=== PATIENT | female | born 1945 | race Caucasian/White ===

== ENCOUNTER 2016-08-07 19:57 | Emergency (ER) | payer MEDICARE ==
[2016-08-07] MEDS ORDERED: Ketorolac 30 MG/ML SDV IM ONE (20:36)
--- NOTE | 2016-08-07 20:39 | EDM.PDOC ---
ED HPI GI/ABDOMINAL - General Chief Complaint: Abdominal Pain Stated Complaint: LOWER ABD PAIN Time Seen by Provider: 08/07/16 20:25 Source: Reports: Patient, Old records History Limitations: Reports: No limitations - History of Present Illness INITIAL COMMENTS - FREE TEXT/NARRATIVE: 70 yo female presents with progressive LLQ abdominal pain since this morning. No nausea or fever. Eating did not change her pain. Took acetaminophen with some relief. Has a pHx of a complete hysterectomy and cholecystectomy. Had colonoscopy that per patient revealed polyps, but no diverticuli. Had 2 BM's today. Symptom Onset Date: 08/07/16 Timing/Duration: Reports: Hour(s):, Getting worse Location: LLQ Quality: Reports: ache Severity: moderate Improves with: Reports: other (partial relief with acetaminophen) Context: Reports: other (unknown) Associated Symptoms (-Female): Reports: loss of appetite. 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 Denies: Aspirin, NSAIDS - Related Data Allergies/ADRs: Allergies Allergy/AdvReac Type Severity Reaction Status Date / Time Fish Containing Products Allergy Severe Difficulty Verified 08/07/16 20:11 Swallowing iodine Allergy Severe Rash Verified 08/07/16 20:11 Penicillins Allergy Severe Rash Verified 08/07/16 20:11 Home Meds: Home Meds Ascorbate Calcium [Vitamin C] 500 mg PO DAILY 12/07/13 [History] Aspirin [Low Dose Aspirin EC] 81 mg PO DAILY 12/07/13 [History] Calcium Carbonate [Calcium] 500 mg PO DAILY 12/07/13 [History] Cholecalciferol (Vitamin D3) [Vitamin D] 2,000 unit PO DAILY 12/07/13 [History] Cyanocobalamin (Vitamin B-12) [Vitamin B-12] 1,000 mcg PO DAILY 12/07/13 [ History] Hydrochlorothiazide 25 mg PO DAILY 12/07/13 [History] Multivitamin [Multivitamins] 1 each PO DAILY 12/07/13 [History] Potassium 99 mg PO DAILY 12/07/13 [History] Ranitidine HCl [Ranitidine] 150 mg PO BID 12/07/13 [History] Triamcinolone Acetonide [Triamcinolone Acetonide 0.1% Crm] 15 gm TOP TID PRN [History] amLODIPine Besylate/Benazepril [Amlodipine-Benazepril 10-20 MG] 10 - 20 mg PO DAILY 12/07/13 [History] Ciprofloxacin HCl [Cipro] 500 mg PO BID #19 tablet 08/07/16 [Rx] Metronidazole [IJD: metroNIDAZOLE] 500 mg PO .EVERY 8 HOURS #30 tab 08/07/16 [Rx ] Hydrocodone/Acetaminophen [[place] 5-325] 1 tab PO Q4H PRN #14 tablet 08/08/16 [Rx ] Past Medical History Cardiovascular History: Reports: Hypertension, Other (see below) Other Cardiovascular History: Angiogram Gastrointestinal History: Reports: GERD 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: Musculoskeletal History: Reports: Arthritis, Back pain, chronic Endocrine/Metabolic History: Reports: Obesity/BMI 30+, Vitamin D deficiency Oncologic (Cancer) History: Reports: Uterine - Infectious Disease History Infectious Disease History: Reports: Chicken pox, Measles, Pertussis (whooping cough) - Past Surgical History GI Surgical History: Reports: Cholecystectomy Female Surgical History: Reports: section, Hysterectomy Neurological Surgical History: Reports: Lumbar spine, Spinal fusion Musculoskeletal Surgical History: Reports: Knee replacement Dermatological Surgical History: Reports: Skin biopsy Social & Family History - Tobacco Use Smoking Status *Q: Never Smoker Second Hand Smoke Exposure: No - Caffeine Use Caffeine Use: Reports: Coffee - Alcohol Use Days Per Week of Alcohol Use: 0 - Recreational Drug Use Recreational Drug Use: No ED ROS GENERAL - Review of Systems Review Of Systems: See Below Constitutional: Reports: no symptoms HEENT: Reports: No symptoms Respiratory: Reports: No Symptoms Cardiovascular: Reports: No symptoms Endocrine: Reports: no symptoms GI/Abdominal: Reports: Abdominal pain (LLQ and suprapubic) : Reports: no symptoms Musculoskeletal: Reports: no symptoms Skin: Reports: no symptoms Neurological: Reports: No Symptoms Psychiatric: Reports: No symptoms ED EXAM, GI/ABD - Physical Exam Exam: See Below Exam Limited By: No limitations General Appearance: alert, WD/WN, no apparent distress, obese Eyes: bilateral: normal appearance, EOMI Ears: normal external exam, normal canal, hearing grossly normal Nose: normal inspection, normal mucosa, no blood Throat/Mouth: Normal inspection, Normal lips, Normal teeth, Normal gums, Normal oropharynx, Normal voice, No airway compromise Head: atraumatic, normocephalic Neck: normal inspection, supple Respiratory/Chest: no respiratory distress, lungs clear, normal breath sounds, no accessory muscle use Cardiovascular: regular rate, rhythm, no edema GI/Abdominal: normal bowel sounds, soft, no distention, tenderness (mild LLQ tenderness.). No: distention, guarding, rebound, rigidity, hernia, McBurney's sign, Mansfield's sign Back Exam: normal inspection Extremities: normal inspection, normal range of motion, non-tender, no pedal edema Neurological: alert, oriented, CN II-XII intact, normal cognition, no motor/ sensory deficits Psychiatric: normal affect, normal mood Skin Exam: Warm, Dry, Intact, Normal color, No rash Lymphatic: no adenopathy Course - Vital Signs Text/Narrative:: Toradol 30 mg IM, LR 1000 ml IV Abd/pelvis CT scan- Last Recorded V/S: Last Vital Signs Temp 36.3 C 08/07/16 20:05 Pulse 71 08/07/16 21:34 Resp 18 08/07/16 20:28 BP 145/88 H 08/07/16 21:34 Pulse Ox 100 08/07/16 21:34 - Orders/Labs/Meds Orders: Active Orders 24 hr Category Date Time Status Abdomen Pelvis w Cont [CT] Stat Exams 08/07/16 21:12 Taken Iopamidol [Isovue-300 (61%)] Med 08/07/16 21:30 Active 150 ml IV . DIRECTED Sodium Chloride 0.9% [Saline Flush] Med 08/07/16 21:12 Active 10 ml FLUSH ASDIRECTED PRN Sodium Chloride 0.9% [Saline Flush] Med 08/07/16 21:30 Active 10 ml FLUSH ONETIME PRN Saline Lock Insert [OM.PC] Routine Oth 08/07/16 21:12 Ordered Medication Orders Iopamidol (Isovue-300 (61%)) 150 ml IV . DIRECTED AUBREY Last Admin: 08/07/16 22:51 Dose: 150 ml Sodium Chloride (Saline Flush) 10 ml FLUSH ASDIRECTED PRN PRN Reason: Keep Vein Open Last Admin: 08/07/16 21:52 Dose: 10 ml Sodium Chloride (Saline Flush) 10 ml FLUSH ONETIME PRN PRN Reason: PER RADIOLOGY PROTOCOL Last Admin: 08/07/16 22:50 Dose: 10 ml Labs: Laboratory Tests 08/07/16 08/07/16 08/07/16 Range/Units 20:39 20:47 20:47 WBC 7.7 (4.5-11.0) K/uL RBC 4.52 (3.30-5.50) M/uL Hgb 12.1 (12.0-15.0) g/dL Hct 37.6 (36.0-48.0) % MCV 83 (80-98) fL MCH 27 (27-31) pg MCHC 32 (32-36) % Plt Count 340 (150-400) K/uL Sodium 142 (140-148) mmol/L Potassium 3.9 (3.6-5.2) mmol/L Chloride 105 (100-108) mmol/L Carbon Dioxide 27 (21-32) mmol/L Anion Gap 10.4 (5.0-14.0) mmol/L BUN 19 H (7-18) mg/dL Creatinine 1.2 H (0.6-1.0) mg/dL Est Cr Clr Drug Dosing 32.92 mL/min Estimated GFR (MDRD) 44 L (>60) Glucose 96 (74-106) mg/dL Calcium 8.9 (8.5-10.1) mg/dL C-Reactive Protein (0.0-0.3) mg/dL Urine Color Yellow Urine Appearance Clear Urine pH 5.0 (4.5-8.0) Ur Specific [place] 1.010 (1.008-1.030) Urine Protein Negative (NEGATIVE) mg/dL Urine Glucose (UA) Normal (NEGATIVE) mg/dL Urine Ketones Negative (NEGATIVE) mg/dL Urine Occult Blood Negative (NEGATIVE) Urine Nitrite Negative (NEGATIVE) Urine Bilirubin Negative (NEGATIVE) Urine Urobilinogen Normal (NORMAL) mg/dL Ur Leukocyte Esterase Negative (NEGATIVE) Urine RBC 0-5 (0-5) Urine WBC 0-5 (0-5) Ur Epithelial Cells Rare Amorphous Sediment Few Urine Bacteria Rare Urine Mucus Few 08/07/16 Range/Units 20:47 WBC (4.5-11.0) K/uL RBC (3.30-5.50) M/uL Hgb (12.0-15.0) g/dL Hct (36.0-48.0) % MCV (80-98) fL MCH (27-31) pg MCHC (32-36) % Plt Count (150-400) K/uL Sodium (140-148) mmol/L Potassium (3.6-5.2) mmol/L Chloride (100-108) mmol/L Carbon Dioxide (21-32) mmol/L Anion Gap (5.0-14.0) mmol/L BUN (7-18) mg/dL Creatinine (0.6-1.0) mg/dL Est Cr Clr Drug Dosing mL/min Estimated GFR (MDRD) (>60) Glucose (74-106) mg/dL Calcium (8.5-10.1) mg/dL C-Reactive Protein 0.79 H (0.0-0.3) mg/dL Urine Color Urine Appearance Urine pH (4.5-8.0) Ur Specific [place] (1.008-1.030) Urine Protein (NEGATIVE) mg/dL Urine Glucose (UA) (NEGATIVE) mg/dL Urine Ketones (NEGATIVE) mg/dL Urine Occult Blood (NEGATIVE) Urine Nitrite (NEGATIVE) Urine Bilirubin (NEGATIVE) Urine Urobilinogen (NORMAL) mg/dL Ur Leukocyte Esterase (NEGATIVE) Urine RBC (0-5) Urine WBC (0-5) Ur Epithelial Cells Amorphous Sediment Urine Bacteria Urine Mucus Meds: Medications Generic Name Dose Route Start Last Admin Trade Name Freq PRN Reason Stop Dose Admin Iopamidol 150 ml 08/07/16 21:30 08/07/16 22:51 Isovue-300 (61%) IV 150 ml . DIRECTED AUBREY Administration Sodium Chloride 10 ml 08/07/16 21:12 08/07/16 21:52 Saline Flush FLUSH 10 ml ASDIRECTED PRN Administration Keep Vein Open Sodium Chloride 10 ml 08/07/16 21:30 08/07/16 22:50 Saline Flush FLUSH 10 ml ONETIME PRN Administration PER RADIOLOGY PROTOCOL Discontinued Medications Generic Name Dose Route Start Last Admin Trade Name Freq PRN Reason Stop Dose Admin Ciprofloxacin 500 mg 08/07/16 23:25 08/07/16 23:33 Ciprofloxacin Hcl PO 08/07/16 23:26 500 mg ONETIME ONE Administration Lactated Ringer's 1,000 mls @ 1,000 mls/hr 08/07/16 21:30 08/07/16 21:41 Ringers, Lactated IV 08/07/16 22:29 1,000 mls/hr BOLUS ONE Administration Sodium Chloride 85 mls @ 3 mls/sec 08/07/16 21:30 08/07/16 22:50 Normal Saline IV 08/07/16 21:31 3 mls/sec ONETIME ONE Administration Ketorolac Tromethamine 30 mg 08/07/16 20:36 08/07/16 20:45 Toradol IM 08/07/16 20:37 30 mg ONETIME ONE Administration Metronidazole 500 mg 08/07/16 23:26 08/07/16 23:33 Metronidazole PO 08/07/16 23:27 500 mg ONETIME ONE Administration Departure - Departure Time of Disposition: 00:05 Disposition: Home, Self-Care 01 Condition: fair Clinical Impression: Diverticulitis Qualifiers: Diverticulitis site: large intestine Diverticulitis bleeding: without bleeding Diverticulitis complication: without perforation or abscess Qualified Code(s): K57.32 - Diverticulitis of large intestine without perforation or abscess without bleeding Prescriptions: Ciprofloxacin HCl [Cipro] 500 mg PO BID #19 tablet Hydrocodone/Acetaminophen [[place] 5-325] 1 tab PO Q4H PRN #14 tablet PRN Reason: Pain Metronidazole [IJD: metroNIDAZOLE] 500 mg PO .EVERY 8 HOURS #30 tab Referrals: PCP,None [Primary Care Provider] - Forms: ED Department Discharge Additional Instructions: Eat a light diet. Take metronidazole and ciprofloxacin as directed. Use either acetaminophen or [place] for pain relief. See your doctor early this next week for recheck. Return if worse. - My Orders Last 24 Hours: My Active Orders 08/07/16 21:12 Abdomen Pelvis w Cont [CT] Stat Sodium Chloride 0.9% [Saline Flush] 10 ml FLUSH ASDIRECTED PRN Saline Lock Insert [OM.PC] Routine 08/07/16 21:30 Iopamidol [Isovue-300 (61%)] 150 ml IV . DIRECTED Sodium Chloride 0.9% [Saline Flush] 10 ml FLUSH ONETIME PRN - Assessment/Plan Last 24 Hours: My Active Orders 08/07/16 21:12 Abdomen Pelvis w Cont [CT] Stat Sodium Chloride 0.9% [Saline Flush] 10 ml FLUSH ASDIRECTED PRN Saline Lock Insert [OM.PC] Routine 08/07/16 21:30 Iopamidol [Isovue-300 (61%)] 150 ml IV . DIRECTED Sodium Chloride 0.9% [Saline Flush] 10 ml FLUSH ONETIME PRN
[2016-08-07] MEDS ORDERED: Sodium Chloride 0.9% 10 ML Syringe FLUSH PRN ×2 (21:12→21:30)
[2016-08-07] MEDS ORDERED: Iopamidol 612 MG/ML 150 ML Bottle IV SCH (21:30)
[2016-08-07] MEDS ORDERED: Lactated Ringers 1,000 ML IV ONE (21:30)
[2016-08-07 21:48] VITALS: BP 145/88
[2016-08-07] MEDS ORDERED: Ciprofloxacin 500 MG Tab PO ONE (23:25)
[2016-08-07] MEDS ORDERED: metroNIDAZOLE 250 MG Tab PO ONE (23:26)
== END 2016-08-08 00:11 | disposition home or self-care (01) ==
LOC: JP.ED 19:57
DX: K57.32 Diverticulitis of large intestine without perforation or abscess without bleeding (principal); I10 Essential (primary) hypertension; K21.9 Gastro-esophageal reflux disease without esophagitis; E66.9 Obesity, unspecified; Z68.43 Body mass index [BMI] 50.0-59.9, adult; Z90.49 Acquired absence of other specified parts of digestive tract; Z90.710 Acquired absence of both cervix and uterus; Z98.1 Arthrodesis status; Z96.659 Presence of unspecified artificial knee joint; Z98.890 Other specified postprocedural states; Z85.42 Personal history of malignant neoplasm of other parts of uterus; Z79.82 Long term (current) use of aspirin; Z79.899 Other long term (current) drug therapy; Z88.0 Allergy status to penicillin; Z91.013 Allergy to seafood; Z88.8 Allergy status to other drugs, medicaments and biological substances
CPT/HCPCS: 36415; 74177; 80048; 81001; 85027; 86140; 96360; 96372; 99283; 99284; A9270; J1885; J7030; J7050; J7120

== ENCOUNTER 2016-08-30 18:48 | Emergency (ER) | payer MEDICARE ==
[2016-08-30 18:54] VITALS: BP 146/78
--- NOTE | 2016-08-30 19:42 | EDM.PDOC ---
[id number]: ILLNESS Time Seen by Provider: 08/30/16 19:00 Source of Information: Reports: Patient, EMS, Family History Limitations: Reports: No limitations - History of Present Illness INITIAL COMMENTS - FREE TEXT/NARRATIVE: 70-year-old female brought in by ambulance after having what appears to be a very intense syncopal episode at home. She was active in the house picking up papers off the floor, and sat down in a chair and felt fine for approximately 15 minutes. She then developed some lightheadedness and after leaning forward apparently fainted in the next and she remembers is her talking to her. She then felt she was doing better but walked into the kitchen and felt her legs were rubbery, she was lightheaded and was diaphoretic so she called her daughter and her daughter told her to come in. EMS arrived, found her to be stable with frequent PVCs but no other abnormalities. On arrival to the emergency room she was asymptomatic. She had an angiogram 2 years ago which was normal, a complete physical 3 weeks ago with labs which was reassuring and normal, but has been taking antibiotics for recent diverticulitis. She did not take her regular medications today. She did have an alcoholic beverage this afternoon which is very unusual for her. Onset: sudden Location: Reports: generalized Severity: moderate Associated Symptoms: Reports: other (Brief period of lightheaded sensation prior to fainting, she was incontinent during the episode) Abdominal Pain Score (Numeric/FACES): 1 - Related Data Allergies Allergy/AdvReac Type Severity Reaction Status Date / Time Fish Containing Products Allergy Severe Difficulty Verified 08/30/16 18:57 Swallowing iodine Allergy Severe Rash Verified 08/30/16 18:57 Penicillins Allergy Severe Rash Verified 08/30/16 18:57 Home Meds: Home Meds Ascorbate Calcium [Vitamin C] 500 mg PO DAILY 12/07/13 [History] Aspirin [Low Dose Aspirin EC] 81 mg PO DAILY 12/07/13 [History] Calcium Carbonate [Calcium] 500 mg PO DAILY 12/07/13 [History] Cholecalciferol (Vitamin D3) [Vitamin D] 2,000 unit PO DAILY 12/07/13 [History] Cyanocobalamin (Vitamin B-12) [Vitamin B-12] 1,000 mcg PO DAILY 12/07/13 [ History] Hydrochlorothiazide 25 mg PO DAILY 12/07/13 [History] Multivitamin [Multivitamins] 1 each PO DAILY 12/07/13 [History] Potassium 99 mg PO DAILY 12/07/13 [History] Ranitidine HCl [Ranitidine] 150 mg PO BID 12/07/13 [History] Triamcinolone Acetonide [Triamcinolone Acetonide 0.1% Crm] 15 gm TOP TID PRN [History] amLODIPine Besylate/Benazepril [Amlodipine-Benazepril 10-20 MG] 10 - 20 mg PO DAILY 12/07/13 [History] Ciprofloxacin HCl [Cipro] 500 mg PO BID #19 tablet 08/07/16 [Rx] Metronidazole [IJD: metroNIDAZOLE] 500 mg PO .EVERY 8 HOURS #30 tab 08/07/16 [Rx ] Hydrocodone/Acetaminophen [[place] 5-325] 1 tab PO Q4H PRN #14 tablet 08/08/16 [Rx ] Past Medical History Cardiovascular History: Reports: Hypertension, Other (see below) Other Cardiovascular History: Angiogram Gastrointestinal History: Reports: GERD, Other (see below) Other Gastrointestinal History: diverticulitis 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: , 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 (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) Other OB/BYN History: uterine cancer Musculoskeletal History: Reports: Arthritis, Back pain, chronic Endocrine/Metabolic History: Reports: Obesity/BMI 30+, Vitamin D deficiency Oncologic (Cancer) History: Reports: Uterine, Other (see below) Other Oncologic History: skin cancer Dermatologic History: Reports: Other (see below) Other Dermatologic History: skin cancer - Infectious Disease History Infectious Disease History: Reports: Chicken pox, Measles, Mumps - Past Surgical History GI Surgical History: Reports: Cholecystectomy, Colonoscopy, Polypectomy Female Surgical History: Reports: section, Hysterectomy, Salpingo- oophorectomy Neurological Surgical History: Reports: Lumbar spine, Spinal fusion Musculoskeletal Surgical History: Reports: Knee replacement Dermatological Surgical History: Reports: Skin biopsy Social & Family History - Tobacco Use Smoking Status *Q: Never Smoker Second Hand Smoke Exposure: No - Caffeine Use Caffeine Use: Reports: Coffee - Alcohol Use Days Per Week of Alcohol Use: 0 - Recreational Drug Use Recreational Drug Use: No ED ROS GENERAL - Review of Systems Review Of Systems: See Below Constitutional: Denies: fever, chills Respiratory: Denies: Shortness of Breath Cardiovascular: Denies: Chest pain Endocrine: Denies: fatigue GI/Abdominal: Denies: Abdominal pain, Nausea, Vomiting : Reports: incontinence Skin: Reports: pallor, diaphoresis Neurological: Reports: Syncope Psychiatric: Reports: No symptoms ED EXAM, GENERAL - Physical Exam Exam: See Below Exam Limited By: No limitations General Appearance: alert, no apparent distress Eye Exam: bilateral eye: EOMI, normal inspection Respiratory/Chest: no respiratory distress, lungs clear Cardiovascular: regular rate, rhythm, extra beats (Frequent PVCs) GI/Abdominal: soft, non tender Extremities: pedal edema (1+ symmetric lower extremity edema) Neurological: alert, oriented, no motor/sensory deficits Psychiatric: normal affect, normal mood Skin Exam: Warm, Dry Course - Vital Signs Last Recorded V/S: Last Vital Signs Temp 97.3 F 08/30/16 19:03 Pulse 94 08/30/16 19:03 Resp 16 08/30/16 19:03 BP 146/78 H 08/30/16 19:03 Pulse Ox 99 08/30/16 19:03 - Orders/Labs/Meds Labs: Laboratory Tests 08/30/16 08/30/16 Range/Units 19:57 19:57 WBC 6.6 (4.5-11.0) K/uL RBC 4.48 (3.30-5.50) M/uL Hgb 11.9 L (12.0-15.0) g/dL Hct 37.6 (36.0-48.0) % MCV 84 (80-98) fL MCH 27 (27-31) pg MCHC 32 (32-36) % Plt Count 319 (150-400) K/uL Neut % (Auto) 68 H (36-66) % Lymph % (Auto) 20 L (24-44) % [place] % (Auto) 9 H (2-6) % Eos % (Auto) 3 (2-4) % Baso % (Auto) 0 (0-1) % Sodium 142 (140-148) mmol/L Potassium 4.0 (3.6-5.2) mmol/L Chloride 106 (100-108) mmol/L Carbon Dioxide 27 (21-32) mmol/L Anion Gap 9.2 (5.0-14.0) mmol/L BUN 22 H (7-18) mg/dL Creatinine 1.1 H (0.6-1.0) mg/dL Est Cr Clr Drug Dosing 37.64 mL/min Estimated GFR (MDRD) 49 L (>60) Glucose 120 H (74-106) mg/dL Calcium 8.3 L (8.5-10.1) mg/dL Total Bilirubin 0.3 D (0.2-1.0) mg/dL AST 21 (15-37) U/L ALT 22 (12-78) U/L Alkaline Phosphatase 63 (46-116) U/L Troponin I 0.027 (0.000-0.056) ng/mL Total Protein 7.1 (6.4-8.2) g/dL Albumin 3.3 L (3.4-5.0) g/dL Globulin 3.8 H (2.3-3.5) g/dL Albumin/Globulin Ratio 0.9 L (1.2-2.2) - Re-Assessments/Exams Free Text/Narrative Re-Assessment/Exam: 08/30/16 20:18 Patient was kept on cardiac monitoring for 2 hours, displayed frequent PACs and PVCs but no runs of ominous arrhythmia. She had no recurrence of symptoms. A CBC CMP and troponin were obtained. 08/30/16 20:33 Labs were reassuring. The patient in observation in the hospital overnight on telemetry which she wanted to go home. I think she'll do well as this was likely vasovagal. Departure - Departure Time of Disposition: 20:50 Disposition: Home, Self-Care 01 Condition: good Clinical Impression: Syncope, vasovagal Instructions: Syncope, [id number] Referrals: Mane Cohen MD [Primary Care Provider] - Forms: ED Department Discharge Care Plan Goals: Continue your regular medications, increase activity as tolerated and return anytime if worsening or concerns.
== END 2016-08-30 20:50 | disposition home or self-care (01) ==
LOC: JP.ED 18:48
DX: R55 Syncope and collapse (principal); I10 Essential (primary) hypertension; K21.9 Gastro-esophageal reflux disease without esophagitis; E66.9 Obesity, unspecified; Z68.42 Body mass index [BMI] 45.0-49.9, adult; Z85.42 Personal history of malignant neoplasm of other parts of uterus; Z90.49 Acquired absence of other specified parts of digestive tract; Z90.710 Acquired absence of both cervix and uterus; Z90.721 Acquired absence of ovaries, unilateral; Z98.1 Arthrodesis status; Z98.890 Other specified postprocedural states; Z96.659 Presence of unspecified artificial knee joint; Z79.82 Long term (current) use of aspirin; Z79.899 Other long term (current) drug therapy; Z88.0 Allergy status to penicillin; Z88.8 Allergy status to other drugs, medicaments and biological substances; Z91.018 Allergy to other foods
CPT/HCPCS: 36415; 80053; 84484; 85025; 99284

== ENCOUNTER 2017-07-25 06:36 | Emergency (ER) | payer MEDICARE ==
[2017-07-25 07:19] VITALS: BP 115/59
--- NOTE | 2017-07-25 08:16 | EDM.PDOC ---
ED HPI GENERAL MEDICAL PROBLEM - General Chief Complaint: Syncope Stated Complaint: DIZZY Time Seen by Provider: 07/25/17 08:00 Source of Information: Reports: Patient, Family, Old Records, RN History Limitations: Reports: No Limitations - History of Present Illness INITIAL COMMENTS - FREE TEXT/NARRATIVE: 71 yo female presents from her home after a syncopal spell that lasted a couple minutes. She was in bed and recalls changing her position in bed and then doesn' t remember anything until she came to. She was seen here several mos ago for a very similar episode. Her extensive work up at that time was negative and included blood work, a heart monitor for a month, ECHO, a stress test, and a head CT. Both syncopal spells included incontinence of urine, diaphoresis, & no tongue biting or tremors. Both were associated with some weakness afterwards. She lives with her who described to EMS what he noted. EMS noted all normal vitals and BS upon their assessment. On presentation to the ER Mary Kay is feeling fully back to her normal. Didn't sleep well last night, but this is not unusual. Has no hx of seizures. Reports eating cake and ice cream before bed, and had another piece of cake in the night when she couldn't sleep. Onset: Today Onset Date: 07/25/17 Onset Time: 06:15 Duration: Minutes: (2-4), Improving (now normal) Location: Reports: Generalized Quality: Reports: Other (no pain) Severity: Moderate Improves with: Reports: Other (? time) Worsens with: Reports: Other (unknown precipitating events.) Context: Reports: Other (Hx of one prior episode of syncope, ) Associated Symptoms: Reports: Diaphoresis, Syncope, Weakness. 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 (see below) (none) - Related Data Allergies Allergy/AdvReac Type Severity Reaction Status Date / Time Fish Containing Products Allergy Severe Difficulty Verified 07/25/17 07:22 Swallowing iodine Allergy Severe Rash Verified 07/25/17 07:22 Penicillins Allergy Severe Rash Verified 07/25/17 07:22 Home Meds: Home Meds Ascorbate Calcium [Vitamin C] 500 mg PO DAILY 12/07/13 [History] Aspirin [Low Dose Aspirin EC] 81 mg PO DAILY 12/07/13 [History] Calcium Carbonate [Calcium] 500 mg PO DAILY 12/07/13 [History] Cholecalciferol (Vitamin D3) [Vitamin D] 2,000 unit PO DAILY 12/07/13 [History] Cyanocobalamin (Vitamin B-12) [Vitamin B-12] 1,000 mcg PO DAILY 12/07/13 [ History] Hydrochlorothiazide 25 mg PO DAILY 12/07/13 [History] Multivitamin [Multivitamins] 1 each PO DAILY 12/07/13 [History] Potassium 99 mg PO DAILY 12/07/13 [History] Ranitidine HCl [Ranitidine] 150 mg PO BID 12/07/13 [History] Triamcinolone Acetonide [Triamcinolone Acetonide 0.1% Crm] 1 appful TOP TID PRN 12/07/13 [History] amLODIPine Besylate/Benazepril [Amlodipine-Benazepril 10-20 MG] 1 cap PO DAILY 12/07/13 [History] atorvaSTATin [Lipitor] 1 tab PO BEDTIME 09/11/16 [History] Past Medical History - Past Health History Medical/Surgical History: Denies Medical/Surgical History Cardiovascular History: Reports: Hypertension, Other (See Below) Other Cardiovascular History: Angiogram Gastrointestinal History: Reports: GERD, Other (See Below) Other Gastrointestinal History: diverticulitis 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: , Other (See Below) Other OB/BYN History: uterine cancer Musculoskeletal History: Reports: Arthritis, Back Pain, Chronic Endocrine/Metabolic History: Reports: Obesity/BMI 30+, Vitamin D Deficiency Oncologic (Cancer) History: Reports: Uterine, Other (See Below) Other Oncologic History: skin cancer Dermatologic History: Reports: Other (See Below) Other Dermatologic History: skin cancer - Infectious Disease History Infectious Disease History: Reports: Chicken Pox, Measles, Mumps - Past Surgical History Female Surgical History: Reports: Section, Hysterectomy, Salpingo- Oophorectomy Neurological Surgical History: Reports: Lumbar Spine, Spinal Fusion Musculoskeletal Surgical History: Reports: Knee Replacement Dermatological Surgical History: Reports: Skin Biopsy Social & Family History - Tobacco Use Smoking Status *Q: Never Smoker Second Hand Smoke Exposure: No - Caffeine Use Caffeine Use: Reports: Coffee - Alcohol Use Days Per Week of Alcohol Use: 0 - Recreational Drug Use Recreational Drug Use: No ED ROS GENERAL - Review of Systems Review Of Systems: See Below Constitutional: Reports: Diaphoresis (transiently associated with her syncopal spell.) HEENT: Reports: No Symptoms Respiratory: Reports: No Symptoms Cardiovascular: Reports: No Symptoms Endocrine: Reports: No Symptoms GI/Abdominal: Reports: No Symptoms : Reports: Incontinence (only in association with her synopal spells.) Musculoskeletal: Reports: No Symptoms Skin: Reports: No Symptoms Neurological: Reports: No Symptoms Psychiatric: Reports: No Symptoms - Physical Exam Exam: See Below Exam Limited By: No Limitations General Appearance: Alert, WD/WN, No Apparent Distress, Obese Eye Exam: Bilateral Eye: EOMI, Normal Inspection, PERRL Ears: Normal External Exam, Normal Canal, Hearing Grossly Normal Nose: Normal Inspection, Normal Mucosa, No Blood Throat/Mouth: Normal Inspection, Normal Lips, Normal Oropharynx, Normal Voice, No Airway Compromise. No: Evidence of Tongue Biting Head Exam: Atraumatic, Normocephalic Neck: Normal Inspection, Supple Respiratory/Chest: No Respiratory Distress, Lungs Clear, Normal Breath Sounds, No Accessory Muscle Use Cardiovascular: Regular Rate, Rhythm, No Edema GI/Abdominal: Normal Bowel Sounds, Soft, Non-Tender, No Distention Rectal (Female) Exam: Normal Exam Neuro Exam (Abbreviated): Alert, Oriented, CN II-XII Intact, Normal Cognition, No Motor/Sensory Deficits Back Exam: Normal Inspection. No: CVA Tenderness (R), CVA Tenderness (L) Extremities: Normal Inspection, Normal Range of Motion, Non-Tender, No Pedal Edema Psychiatric: Normal Affect, Normal Mood Skin Exam: Warm, Dry, Intact, Normal Color, No Rash EKG INTERPRETATION EKG Date: 07/25/17 Time: 08:40 Rhythm: NSR Rate (Beats/Min): 72 [place]: Normal P-Wave: Present QRS: Normal ST-T: Normal QT: Normal Comparison: NA - No Prior EKG Course - Vital Signs Last Recorded V/S: Last Vital Signs Temp 36.2 C 07/25/17 07:36 Pulse 75 07/25/17 07:36 Resp 12 07/25/17 07:36 BP 115/59 L 07/25/17 07:36 Pulse Ox 98 07/25/17 07:36 Orthostatic Blood Pressure [ 116/70 Standing] Orthostatic Blood Pressure [ 118/64 Sitting] Orthostatic Blood Pressure [ 112/51 Supine] - Orders/Labs/Meds Orders: Active Orders 24 hr Category Date Time Status Cardiac Monitoring [RC] .As Directed Care 07/25/17 07:17 Active EKG Documentation Completion [RC] ASDIRECTED Care 07/25/17 08:30 Ordered Orthostatic Vital Signs [RC] ASDIRECTED Care 07/25/17 07:17 Active EKG 12 Lead [EK] Routine Ther 07/25/17 08:30 Ordered Labs: Laboratory Tests 07/25/17 07/25/17 Range/Units 07:30 07:30 WBC 7.3 (4.5-11.0) K/uL RBC 4.37 (3.30-5.50) M/uL Hgb 11.6 L (12.0-15.0) g/dL Hct 36.1 (36.0-48.0) % MCV 83 (80-98) fL MCH 27 (27-31) pg MCHC 32 (32-36) % Plt Count 356 (150-400) K/uL Sodium 142 (140-148) mmol/L Potassium 3.6 (3.6-5.2) mmol/L Chloride 107 (100-108) mmol/L Carbon Dioxide 26 (21-32) mmol/L Anion Gap 9.5 (5.0-14.0) mmol/L BUN 22 H (7-18) mg/dL Creatinine 1.0 (0.6-1.0) mg/dL Est Cr Clr Drug Dosing 42.68 mL/min Estimated GFR (MDRD) 55 L (>60) Glucose 138 H (74-106) mg/dL Calcium 8.7 (8.5-10.1) mg/dL Troponin I 0.054 (0.000-0.056) ng/mL Departure - Departure Time of Disposition: 08:44 Disposition: Home, Self-Care 01 Condition: Good Clinical Impression: Syncope Qualifiers: Syncope type: unspecified Qualified Code(s): R55 - Syncope and collapse - Discharge Information Referrals: Mane Cohen MD [Primary Care Provider] - Forms: ED Department Discharge - My Orders Last 24 Hours: My Active Orders 07/25/17 07:17 Cardiac Monitoring [RC] .As Directed Orthostatic Vital Signs [RC] ASDIRECTED 07/25/17 08:30 EKG Documentation Completion [RC] ASDIRECTED EKG 12 Lead [EK] Routine - Assessment/Plan Last 24 Hours: My Active Orders 07/25/17 07:17 Cardiac Monitoring [RC] .As Directed Orthostatic Vital Signs [RC] ASDIRECTED 07/25/17 08:30 EKG Documentation Completion [RC] ASDIRECTED EKG 12 Lead [EK] Routine
== END 2017-07-25 09:23 | disposition home or self-care (01) ==
LOC: JP.ED 06:36
DX: R55 Syncope and collapse (principal); I10 Essential (primary) hypertension; K21.9 Gastro-esophageal reflux disease without esophagitis; M19.90 Unspecified osteoarthritis, unspecified site; Z85.42 Personal history of malignant neoplasm of other parts of uterus; Z85.828 Personal history of other malignant neoplasm of skin; Z79.82 Long term (current) use of aspirin; Z79.899 Other long term (current) drug therapy; Z91.013 Allergy to seafood; Z88.0 Allergy status to penicillin; Z91.09 Other allergy status, other than to drugs and biological substances
CPT/HCPCS: 36415; 80048; 84484; 85027; 93005; 93010; 99284

== ENCOUNTER 2018-12-16 06:43 | Day surgery (SDC) | payer MEDICARE ==
[2018-12-16] MEDS ORDERED: Lactated Ringers 1,000 ML IV SCH (07:30)
[2018-12-16] MEDS ORDERED: Propofol 200 MG/20 ML SDV ONE ×2 (08:22→09:06)
[2018-12-16] MEDS ORDERED: Midazolam 1 MG/ML 2 ML SDV ONE (08:22)
[2018-12-16] MEDS ORDERED: fentaNYL 100 MCG/2 ML SDV ONE (08:22)
[2018-12-16 11:06] VITALS: BP 126/70; PULSE 77
--- NOTE | 2018-12-16 11:28 | OR ---
DATE OF PROCEDURE: 12/16/2018 PREOPERATIVE DIAGNOSES: History of colonic tubular adenoma, anemia. POSTOPERATIVE DIAGNOSES: History of colonic tubular adenoma, anemia, hiatal hernia, multiple gastric polyps, colonic diverticulosis, hepatic flexure polyp. PROCEDURES: Esophagogastroduodenoscopy with sampling of gastric polyps, colonoscopy to the cecum with biopsy resection of hepatic flexure polyp. ANESTHESIA: IV anesthesia with monitored anesthesia care. SURGEON: Michael Georges MD INDICATION: This 72-year-old white female is referred for upper and lower endoscopy. Indications include anemia and a history of colonic tubular adenoma. I counseled her for the procedures including risks and alternatives, and she gave her informed consent to proceed. DESCRIPTION OF PROCEDURE: The patient was placed in the left lateral decubitus position. IV anesthesia was administered by the Anesthesia Service. Time-out was held. The flexible video Olympus upper endoscope was passed through her mouth, down her esophagus, and into her stomach. The scope was easily passed through the pylorus into the duodenum reaching its third portion. The scope was then slowly withdrawn examining the mucosa throughout. The duodenal mucosa appeared unremarkable. The scope was brought up through the pylorus. The antrum appeared unremarkable. The scope was retroflexed. We saw a prominent hiatal hernia proximally. The scope was straightened. In the midbody of the stomach, we saw multiple polyps. These looked like fundic gland polyps. We removed several of them for analysis. The scope was then brought up through the hiatal hernia into the GE junction. This appeared unremarkable. The scope was then brought up through the remainder of the esophagus which otherwise appeared unremarkable and it was removed. Next, a rectal exam was performed, which was unremarkable. The flexible video Olympus colonoscope was introduced through her anus, up her rectum, and out her colon all the way to the cecum. En route, we saw multiple left- sided diverticula. There was no bleeding or inflammation associated with them. Once the cecum was reached, the scope was slowly withdrawn examining the mucosa throughout. At the hepatic flexure, we saw a small polyp, which was removed with the biopsy forceps. The scope was withdrawn further with no other neoplastic lesions seen. The scope was retroflexed in the rectum with the distal rectum appearing unremarkable. The scope was straightened and removed. She tolerated the procedure well. Michael Georges MD /[id number] MTDD
== END 2018-12-16 11:15 | disposition home or self-care (01) ==
LOC: JP.SDS 06:43
PROVIDERS: ATTEND Surgery
DX: D12.3 Benign neoplasm of transverse colon (principal); K57.30 Diverticulosis of large intestine without perforation or abscess without bleeding; D64.9 Anemia, unspecified; K31.7 Polyp of stomach and duodenum; K44.9 Diaphragmatic hernia without obstruction or gangrene; K21.9 Gastro-esophageal reflux disease without esophagitis; Z88.0 Allergy status to penicillin; Z91.013 Allergy to seafood; Z91.048 Other nonmedicinal substance allergy status; Z86.010 Personal history of colon polyps
CPT/HCPCS: 43239; 45380; J2250; J2704; J3010; J7120; 88305

== ENCOUNTER 2020-11-01 09:50 | Emergency (ER) | payer MEDICARE ==
[2020-11-01 10:29] VITALS: BP 144/55; PULSE 84
--- NOTE | 2020-11-01 11:13 | EDM.PDOC ---
ED HPI GENERAL MEDICAL PROBLEM - General Chief Complaint: Eye Problems Stated Complaint: SHAKES, BLOOD SHOT EYE, DIZZY, HEADACHE Time Seen by Provider: 11/01/20 11:00 Source of Information: Reports: Patient - History of Present Illness INITIAL COMMENTS - FREE TEXT/NARRATIVE: Mary Kay is a 74 year old female whom present to ER for concerns regarding redness left eye this am with sneezing this am. Mary Kay reports slight headache, lightheadedness and slight malaise this am which has now passed. Mary Kay reports slight discomfort with urination yesterday but that too has resolved. Mary Kay has a strong family history of cardiac concerns in her fathers history in addition to many of her 9 siblings. Mary Kay's mother lives to her 90s. Mary Kay had a complete cardiac work-up a few years ago and told she should stop worrying unnecessarily about her heart as she may have her mother's genetic make up and not her fathers. Mary Kay reports feeling fine at this time but about 10 years ago she had a similar changes in her eye due to very high blood pressure and concern regarding blood pressure increasing risk of stroke or [place]. Mary Kay is faithful about taking her blood pressure medications at this time. 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 She is grateful for her purpose in her daughter's office. - Related Data Allergies Allergy/AdvReac Type Severity Reaction Status Date / Time Fish Containing Products Allergy Severe Difficulty Verified 11/01/20 10:41 Swallowing iodine Allergy Severe Rash Verified 11/01/20 10:41 Penicillins Allergy Severe Rash Verified 11/01/20 10:41 Home Meds: Home Meds Ascorbate Calcium [Vitamin C] 500 mg PO DAILY 12/07/13 [History] Aspirin [Low Dose Aspirin EC] 81 mg PO DAILY 12/07/13 [History] Calcium Carbonate [Calcium] 500 mg PO DAILY 12/07/13 [History] Cholecalciferol (Vitamin D3) [Vitamin D] 1,000 unit PO DAILY 12/07/13 [History] Cyanocobalamin (Vitamin B-12) [Vitamin B-12] 1,000 mcg PO DAILY 12/07/13 [Histo ry] Multivitamin [Multivitamins] 1 each PO DAILY 12/07/13 [History] Potassium 99 mg PO DAILY 12/07/13 [History] Triamcinolone Acetonide [Triamcinolone Acetonide 0.1% Crm] 1 appful TOP TID PRN 12/07/13 [History] amLODIPine Besylate/Benazepril [Amlodipine-Benazepril 10-20 MG] 1 cap PO DAILY 12/07/13 [History] hydroCHLOROthiazide [Hydrochlorothiazide] 25 mg PO DAILY 12/07/13 [History] atorvaSTATin [Lipitor] 40 mg PO BEDTIME 09/11/16 [History] Past Medical History - Past Health History Medical/Surgical History: Denies Medical/Surgical History HEENT History: Reports: Impaired Vision Cardiovascular History: Reports: High Cholesterol, Hypertension, Other (See Below) Other Cardiovascular History: Angiogram Gastrointestinal History: Reports: Cholelithiasis, GERD, Other (See Below) Other Gastrointestinal History: diverticulitis 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: , Other (See Below) 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 FAMILY PROGRAM SPECIALIST History: uterine cancer Musculoskeletal History: Reports: Arthritis, Back Pain, Chronic Endocrine/Metabolic History: Reports: Obesity/BMI 30+, Vitamin D Deficiency Hematologic History: Reports: Anemia, B12 Deficiency, Iron Deficiency Oncologic (Cancer) History: Reports: Uterine, Other (See Below) Other Oncologic History: skin cancer Dermatologic History: Reports: Other (See Below) Other Dermatologic History: skin cancer - Infectious Disease History Infectious Disease History: Reports: Chicken Pox, Measles, Mumps - Past Surgical History Cardiovascular Surgical History: Reports: None GI Surgical History: Reports: Cholecystectomy, Colonoscopy Female Surgical History: Reports: Section, D&C, Hysterectomy, Salpingo-Oophorectomy Neurological Surgical History: Reports: Lumbar Spine, Spinal Fusion Other Neurological Surgeries/Procedures: SPINAL FUSION Musculoskeletal Surgical History: Reports: Knee Replacement Dermatological Surgical History: Reports: Skin Biopsy Social & Family History - Family History Family Medical History: No Pertinent Family History - Tobacco Use Tobacco Use Status *Q: Never Tobacco User - Caffeine Use Caffeine Use: Reports: Coffee ED ROS GENERAL - Review of Systems Review Of Systems: Comprehensive ROS is negative, except as noted in HPI. ED EXAM GENERAL W FULL EYE - Physical Exam Exam: See Below Exam Limited By: No Limitations General Appearance: Alert, WD/WN, No Apparent Distress Eye Exam: Right Eye: Normal Inspection, Left Eye: Conjunctival Injection (subconjunctival hemorrhage noted ), Bilateral Eye: PERRL Eyelids: Bilateral: Normal Appearance Conjunctiva & Sclera: Right: Normal Appearance, Left: Subconjuctival Hemorrhage Cornea Exam: Bilateral: Normal Appearance Extraocular Movements: Bilateral: Intact Ears: Normal External Exam, Hearing Grossly Normal Nose: Normal Inspection Throat/Mouth: Normal Voice, No Airway Compromise Head: Atraumatic Neck: Normal Inspection, Full Range of Motion Respiratory/Chest: No Respiratory Distress, Lungs Clear, Normal Breath Sounds Cardiovascular: Normal Peripheral Pulses, No Murmur GI/Abdominal: Soft, Non-Tender Neurological: Alert, Oriented, CN II-XII Intact, Normal Cognition Psychiatric: Normal Affect, Normal Mood Skin Exam: Warm, Dry, Intact, Normal Color Course - Vital Signs Last Recorded V/S: Last Vital Signs Temp 36.2 C 11/01/20 10:49 Pulse 84 11/01/20 10:49 Resp 16 11/01/20 10:49 BP 144/55 H 11/01/20 10:49 Pulse Ox 98 11/01/20 10:49 - Orders/Labs/Meds Labs: Laboratory Tests 11/01/20 11/01/20 Range/Units 11:12 11:23 Sodium 141 (140-148) mmol/L Potassium 3.8 (3.6-5.2) mmol/L Chloride 104 (100-108) mmol/L Carbon Dioxide 27 (21-32) mmol/L Anion Gap 10.5 (5.0-14.0) mmol/L BUN 13 (7-18) mg/dL Creatinine 0.9 (0.6-1.0) mg/dL Est Cr Clr Drug Dosing 43.37 mL/min Estimated GFR (MDRD) > 60 (>60) Glucose 105 (74-106) mg/dL Calcium 8.9 (8.5-10.1) mg/dL Urine Color Yellow (YELLOW) Urine Appearance Clear (CLEAR) Urine pH 5.5 (5.0-8.0) Ur Specific [place] 1.010 (1.008-1.030) Urine Protein Negative (NEGATIVE) mg/dL Urine Glucose (UA) Negative (NEGATIVE) mg/dL Urine Ketones Negative (NEGATIVE) mg/dL Urine Occult Blood Negative (NEGATIVE) Urine Nitrite Negative (NEGATIVE) Urine Bilirubin Negative (NEGATIVE) Urine Urobilinogen 0.2 (0.2-1.0) EU/dL Ur Leukocyte Esterase Negative (NEGATIVE) Urine RBC Not seen (0-5) Urine WBC 0-5 (0-5) Ur Epithelial Cells Rare Amorphous Sediment Not seen Urine Bacteria Not seen Urine Mucus Not seen - Re-Assessments/Exams Free Text/Narrative Re-Assessment/Exam: 11/01/20 11:00 Examination completed and blood pressure in a very good range, decreasing risk that high blood pressure causing blood in left eye. Mary Kay takes Aspiring daily and did sneeze multiple times this am which could have caused the blood under her conjunctiva. Free Text/Narrative Re-Assessment/Exam: Updated patient regarding test results with son at bedside and supportive. Reviewed UA and BMP results in addition to explaining likely cause of redness in left eye and healing course, which will resolve with time. 11/01/20 12:00 Departure - Departure Time of Disposition: 12:02 Disposition: Home, Self-Care 01 Clinical Impression: Subconjunctival hematoma - Discharge Information Instructions: Subconjunctival Hemorrhage Referrals: Toro Lovelace MD [Primary Care Provider] - Forms: ED Department Discharge Additional Instructions: Urine test appears normal, no signs of infection at this time. If symptoms become more regular or severe, report urine testing would be recommended. blood testing shows good kidney function and normal electrolytes blood sugar, sodium and potassium. Your blood pressure was prefect today during your visit, please continue your blood pressure mediations as prescribed. Sepsis Event Note (ED) - Evaluation Sepsis Screening Result: No Definite Risk - Focused Exam Vital Signs: Vital Signs Temp Pulse Resp BP Pulse Ox 11/01/20 10:49 36.2 C 84 16 144/55 H 98 11/01/20 10:27 36.2 C 84 16 144/55 H 98
== END 2020-11-01 12:26 | disposition home or self-care (01) ==
LOC: JP.ED 09:50
DX: S05.12XA Contusion of eyeball and orbital tissues, left eye, initial encounter (principal); E78.00 Pure hypercholesterolemia, unspecified; I10 Essential (primary) hypertension; Z88.0 Allergy status to penicillin; Z91.013 Allergy to seafood; Z91.041 Radiographic dye allergy status; X58.XXXA Exposure to other specified factors, initial encounter
CPT/HCPCS: 36415; 80048; 81001; 99282; 99283

== ENCOUNTER 2020-12-04 11:51 | Inpatient (IN) | payer OTHER, MEDICARE ==
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
[2020-12-04] MEDS ORDERED: Diphtheria,Pertussis(Acell),Tetanus Vaccine 0.5 ML Syringe IM ONE (12:15)
[2020-12-04] MEDS ORDERED: fentaNYL 100 MCG/2 ML SDV IVPUSH ONE (12:50)
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
[2020-12-04] MEDS ORDERED: Polyethylene Glycol 3350 Powder 17 GM Packet PO PRN (14:35)
[2020-12-04] MEDS ORDERED: Ondansetron 4 MG/2 ML SDV IV PRN (14:35)
[2020-12-04] MEDS ORDERED: Sodium Chloride 0.9% 10 ML Syringe FLUSH PRN (14:35)
[2020-12-04] MEDS: Sodium Chloride 0.9% 1,000 ML IV SCH ×2 (15:16→23:39)
[2020-12-04] MEDS: HYDROmorphone 0.5 MG/0.5 ML Syringe IVPUSH PRN ×2 (15:24→19:32)
[2020-12-04] MEDS: ceFAZolin 1 GM in Sodium Chloride 0.9% 50 ML IV SCH (20:40)
[2020-12-04] MEDS: oxyCODONE 5 MG Tab PO PRN (21:05)
[2020-12-04] MEDS: Acetaminophen 325 MG Tab PO PRN (21:06)
[2020-12-05] MEDS: HYDROmorphone 0.5 MG/0.5 ML Syringe IVPUSH PRN ×3 (01:11→06:58)
[2020-12-05] MEDS: ceFAZolin 1 GM in Sodium Chloride 0.9% 50 ML IV SCH (06:08)
[2020-12-05] MEDS ORDERED: Meropenem 500 MG SDV ONE (07:02)
[2020-12-05] MEDS ORDERED: Bupivacaine 0.5% 50 ML MDV ONE (07:08)
[2020-12-05] MEDS ORDERED: Lidocaine 1% with EPINEPHrine 1:100,000 50 ML MDV ONE (07:08)
[2020-12-05] MEDS ORDERED: Rocuronium 50 MG/5 ML Vial ONE (07:11)
[2020-12-05] MEDS ORDERED: Dexamethasone 4 MG/ML SDV ONE (07:11)
[2020-12-05] MEDS ORDERED: Propofol 200 MG/20 ML SDV ONE (07:11)
[2020-12-05] MEDS ORDERED: Glycopyrrolate 0.2 MG/ML 5 ML MDV ONE (07:11)
[2020-12-05] MEDS ORDERED: Succinylcholine 200 MG/10 ML MDV ONE (07:11)
[2020-12-05] MEDS ORDERED: fentaNYL 250 MCG/5 ML SDV ONE (07:11)
[2020-12-05] MEDS ORDERED: Neostigmine Methylsulfate 1 MG/ML 5 ML Syringe ONE (07:11)
[2020-12-05] MEDS ORDERED: Ondansetron 4 MG/2 ML SDV ONE (07:11)
[2020-12-05] MEDS: Sodium Chloride 0.9% 1,000 ML IV SCH ×3 (07:36→23:11)
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
[2020-12-05] MEDS: Docusate Sodium 100 MG Cap PO SCH ×2 (13:09→20:56)
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
[2020-12-05] MEDS: ceFAZolin 1 GM in Premix Bag 1 BAG IV SCH ×2 (14:06→21:09)
[2020-12-05] MEDS: oxyCODONE 5 MG Tab PO PRN ×2 (14:10→20:57)
[2020-12-05] MEDS: Acetaminophen 325 MG Tab PO PRN ×2 (14:10→20:57)
--- NOTE | 2020-12-05 16:17 | PCM.CONSN ---
- General Info Date of Service: 12/05/20 Admission Dx/Problem (Free Text): Admission Diagnosis/Problem Admission Diagnosis/Problem Pain Subjective Update: Patient reports pain in left hand and foot are well controlled at this time. Left forearm is wrapped in Kerlix from procedure earlier today; motion of left 2nd finger has been minimal. Has not been weight bearing on left foot since her xray this afternoon. Functional Status: Reports: Pain Controlled - Review of Systems Musculoskeletal: Reports: Hand Pain (left ), Foot Pain (left ) - Patient Data Vitals - Most Recent: Last Vital Signs Temp 99 F 12/05/20 15:11 Pulse 86 12/05/20 15:11 Resp 18 12/05/20 15:11 BP 103/44 L 12/05/20 15:11 Pulse Ox 92 L 12/05/20 15:11 Weight - Most Recent: 271 lb 6.224 oz I&O - Last 24 Hours: Intake & Output 12/05/20 12/05/20 12/05/20 06:59 14:59 22:59 Intake Total 2640 Output Total 400 100 250 Balance 2240 -100 -250 Lab Results Last 24 Hours: Laboratory Results - last 24 hr 12/05/20 12/05/20 12/05/20 Range/Units 05:21 05:21 06:37 WBC 5.7 (4.5-11.0) K/uL RBC 3.32 (3.30-5.50) M/uL Hgb 8.1 L D (12.0-15.0) g/dL Hct 26.3 L (36.0-48.0) % MCV 79 L (80-98) fL MCH 24 L (27-31) pg MCHC 31 L (32-36) % Plt Count 364 (150-400) K/uL Neut % (Auto) 66.0 (36-66) % Lymph % (Auto) 22.1 L (24-44) % Person % (Auto) 10.3 H (2-6) % Eos % (Auto) 1.4 L (2-4) % Baso % (Auto) 0.2 (0-1) % Sodium 141 (140-148) mmol/L Potassium 3.9 (3.6-5.2) mmol/L Chloride 107 (100-108) mmol/L Carbon Dioxide 24 (21-32) mmol/L Anion Gap 9.6 (5.0-14.0) mmol/L BUN 15 (7-18) mg/dL Creatinine 0.9 (0.6-1.0) mg/dL Est Cr Clr Drug Dosing 43.37 mL/min Estimated GFR (MDRD) > 60 (>60) Glucose 111 H (74-106) mg/dL Calcium 7.7 L (8.5-10.1) mg/dL Blood Type A POSITIVE Gel Antibody Screen Negative Crossmatch See Detail Med Orders - Current: Current Medications Acetaminophen (Acetaminophen 325 Mg Tab) 650 mg PO Q4H PRN PRN Reason: Pain (Mild 1-3)/fever Last Admin: 12/05/20 14:10 Dose: 650 mg Documented by: Docusate Sodium (Docusate Sodium 100 Mg Cap) 100 mg PO BID [facility] Last Admin: 12/05/20 13:09 Dose: 100 mg Documented by: Hydromorphone HCl (Hydromorphone 0.5 Mg/0.5 Ml Syringe) 0.5 mg IVPUSH Q2H PRN PRN Reason: Pain (severe 7-10) Last Admin: 12/05/20 06:58 Dose: 0.5 mg Documented by: Sodium Chloride (Normal Saline) 1,000 mls @ 125 mls/hr IV ASDIRECTED [facility] Last Admin: 12/05/20 14:06 Dose: 125 mls/hr Documented by: Cefazolin Sodium/Dextrose 1 gm (/ Premix) 50 mls @ 100 mls/hr IV Q8HR [facility] Last Admin: 12/05/20 14:06 Dose: 100 mls/hr Documented by: Ondansetron HCl (Ondansetron 4 Mg/2 Ml Sdv) 4 mg IV Q4H PRN PRN Reason: Nausea/Vomiting Last Admin: 12/04/20 15:20 Dose: 4 mg Documented by: Oxycodone HCl (Oxycodone 5 Mg Tab) 5 mg PO Q4H PRN PRN Reason: Pain (moderate 4-6) Last Admin: 12/05/20 14:10 Dose: 5 mg Documented by: Polyethylene Glycol (Polyethylene Glycol 3350 Powder 17 Gm Packet) 17 gm PO DAILY PRN PRN Reason: Constipation Sodium Chloride (Sodium Chloride 0.9% 10 Ml Syringe) 10 ml FLUSH ASDIRECTED PRN PRN Reason: Keep Vein Open Discontinued Medications Bupivacaine HCl (Bupivacaine 0.5% 50 Ml Mdv) Confirm Administered Dose 50 ml .ROUTE .STK-MED ONE Stop: 12/05/20 07:09 Dexamethasone (Dexamethasone 4 Mg/Ml Sdv) Confirm Administered Dose 4 mg .ROUTE .STK-MED ONE Stop: 12/05/20 07:12 Diphtheria/Tetanus/Acell Pertussis (Diphtheria,Pertussis(Acell),Tetanus Vaccine 0.5 Ml Syringe) 0.5 ml IM .ONCE ONE Stop: 12/04/20 12:16 Last Admin: 12/04/20 13:04 Dose: 0.5 ml Documented by: Fentanyl (Fentanyl 100 Mcg/2 Ml Sdv) 50 mcg IVPUSH ONETIME ONE Stop: 12/04/20 12:51 Last Admin: 12/04/20 12:58 Dose: 50 mcg Documented by: Fentanyl (Fentanyl 250 Mcg/5 Ml Sdv) Confirm Administered Dose 250 mcg .ROUTE .STK-MED ONE Stop: 12/05/20 07:12 Glycopyrrolate (Glycopyrrolate 0.2 Mg/Ml 5 Ml Mdv) Confirm Administered Dose 1 mg .ROUTE .STK-MED ONE Stop: 12/05/20 07:12 Cefazolin Sodium 1 gm/ Sodium (Chloride) 50 mls @ 200 mls/hr IV Q8HR [facility] Last Admin: 12/05/20 06:08 Dose: 200 mls/hr Documented by: Linezolid (Zyvox) Confirm Administered Dose 300 mls @ as directed .ROUTE .STK- MED ONE Stop: 12/05/20 07:03 Lidocaine/Epinephrine (Lidocaine 1% With Epinephrine 1:100,000 50 Ml Mdv) Confi rm Administered Dose 50 ml .ROUTE .STK-MED ONE Stop: 12/05/20 07:09 Linezolid (Linezolid 600 Mg/300 Ml Bag) 600 mg IRR .STK-MED ONE Stop: 12/05/20 08:51 Last Admin: 12/05/20 08:50 Dose: 600 mg Documented by: Meropenem (Meropenem 500 Mg Sdv) Confirm Administered Dose 500 mg .ROUTE .STK- MED ONE Stop: 12/05/20 07:03 Last Admin: 12/05/20 08:50 Dose: 500 mg Documented by: Neostigmine Methylsulfate (Neostigmine Methylsulfate 1 Mg/Ml 5 Ml Syringe) Confirm Administered Dose 5 mg .ROUTE .STK-MED ONE Stop: 12/05/20 07:12 Ondansetron HCl (Ondansetron 4 Mg/2 Ml Sdv) Confirm Administered Dose 4 mg .ROUTE .STK-MED ONE Stop: 12/05/20 07:12 Propofol (Propofol 200 Mg/20 Ml Sdv) Confirm Administered Dose 200 mg .ROUTE .STK-MED ONE Stop: 12/05/20 07:12 Rocuronium [place] (Rocuronium 50 Mg/5 Ml Vial) Confirm Administered Dose 50 mg .ROUTE .STK-MED ONE Stop: 12/05/20 07:12 Succinylcholine Chloride (Succinylcholine 200 Mg/10 Ml Mdv) Confirm Administered Dose 200 mg .ROUTE .STK-MED ONE Stop: 12/05/20 07:12 - Exam General: Alert, Oriented, Cooperative, No Acute Distress Extremities: Normal Capillary Refill, Pedal Edema, Arm Pain (left ), Leg Pain (left foot ) Wound/Incisions: Other (unable to assess with dressing on left forearm ) Psy/Mental Status: Alert, Normal Affect, Normal Mood Sepsis Event Note - Evaluation Sepsis Screening Result: No Definite Risk - Focused Exam Vital Signs: Vital Signs Temp Pulse Resp BP Pulse Ox 12/05/20 15:11 99 F 86 18 103/44 L 92 L 12/05/20 14:00 12 127/52 L 96 12/05/20 13:00 16 132/53 L 96 12/05/20 12:33 12 129/61 95 12/05/20 12:00 98.2 F 16 122/40 L 95 12/05/20 11:45 18 120/46 L 93 L 12/05/20 11:30 18 118/37 L 92 L 12/05/20 11:15 18 140/61 95 12/05/20 11:00 98.4 F 12 132/54 L 96 12/05/20 10:55 91 16 125/54 L 96 12/05/20 10:50 96.8 F L 90 16 130/61 96 12/05/20 10:45 92 16 103/77 96 12/05/20 10:40 93 16 139/55 L 99 12/05/20 10:35 97.2 F 94 16 118/84 98 12/05/20 10:30 93 16 131/40 L 97 12/05/20 10:25 92 15 132/54 L 98 12/05/20 10:20 96.4 F L 97 15 129/54 L 97 12/05/20 08:00 97.8 F 16 115/60 96 12/05/20 06:00 19 106/50 L 97 Consult PN Assessment/Plan Procedures: Procedures ASSAY OF AMYLASE (12/07/13) ASSAY OF TROPONIN QUANT (07/25/17) BREAST TOMOSYNTHESIS BI (10/17/20) C-REACTIVE PROTEIN (08/07/16) CARDIOVASCULAR STRESS TEST (09/14/16) CARDIOVASCULAR STRESS TEST (09/14/16) CARDIOVASCULAR STRESS TEST (12/21/13) CARDIOVASCULAR STRESS TEST (12/21/13) COLONOSCOPY AND BIOPSY (12/16/18) COMPLETE CBC AUTOMATED (07/25/17) COMPLETE CBC W/AUTO DIFF WBC (08/30/16) COMPREHEN METABOLIC PANEL (08/30/16) CT ABD & PELV W/CONTRAST (08/07/16) CT HEAD/BRAIN W/O DYE (09/11/16) ECHO EXAM OF ABDOMEN (12/14/13) EGD BIOPSY SINGLE/MULTIPLE (12/16/18) ELECTROCARDIOGRAM TRACING (07/25/17) EMERGENCY DEPT VISIT (11/01/20) EMERGENCY DEPT VISIT (11/01/20) EMERGENCY DEPT VISIT (07/25/17) EMERGENCY DEPT VISIT (08/07/16) EMERGENCY DEPT VISIT (08/07/16) EMERGENCY DEPT VISIT (12/07/13) HT MUSCLE IMAGE SPECT MULT (09/14/16) HYDRATION IV INFUSION INIT (08/07/16) LAPAROSCOPIC CHOLECYSTECTOMY (01/12/14) METABOLIC PANEL TOTAL CA (11/01/20) ROUTINE VENIPUNCTURE (11/01/20) SCR MAMMO BI INCL CAD (10/17/20) THER/PROPH/DIAG INJ SC/IM (08/07/16) URINALYSIS AUTO W/SCOPE (11/01/20) (1) Metacarpal bone fracture SNOMED Code(s): 454326956 Code(s): S62.309A - UNSP FRACTURE OF UNSP METACARPAL BONE, INIT FOR CLOS FX Current Visit: Yes Qualifiers: Encounter type: initial encounter Metacarpal bone: second Fracture type: closed Metacarpal location: other portion of metacarpal Fracture alignment: displaced Assessment:: * Fracture is stable at this time, anticipate this will heal non-surgically with immobilization. Due to forearm lacerations and recent surgery, patient does have a bulky Kerlix dressing on left forearm extending past the MCPs. Unable to properly splint and immobilize fracture site at this time. For now, shelia tape has been applied to the 2nd and 3rd digits to immobilize 2nd digit. * Pending dressing change of left forearm, may be able to immobilize fracture site better with Alumafoam splint and Coban. Will re-evaluate options tomorrow after left forearm dressing change. * Continue with pain control per hospitalist orders. (2) Metatarsal fracture SNOMED Code(s): 400555064 Code(s): S92.309A - FRACTURE OF UNSP METATARSAL BONE(S), UNSP FOOT, INIT Current Visit: Yes Qualifiers: Encounter type: initial encounter Metatarsal bone: fifth Fracture type: closed Laterality: left Assessment:: * Xrays from today revealed fractures of the left 4th and 5th distal metatarsals. Plan to to treat conservatively with immobilization. Fitted patient for a CAM walker boot. Patient should have CAM boot on with ambulation and transfers from bed to commode. Patient may bear full weight as tolerated on left foot. Okay to have CAM boot off with rest and while in bed. * Continue with pain control per hospitalist orders. * Instructions above provided to patient and to LABOR RELATIONS SUPERVISOR. Paperwork for CAM boot left with LABOR RELATIONS SUPERVISOR. Problem List Initiated/Reviewed/Updated: Yes Plan: * Orthopedic services consulted regarding fracture of left 2nd MCP and left 4th and 5th metatarsal fractures. Xrays reviewed by Dr. Cheng and myself. Will be able to treat all fractures conservatively. * Shelia tape applied to left 2nd and 3rd digits to immobilize fracture site at left 2nd MCP. Anticipate placing Alumafoam splint with coban on L hand prior to discharge, pending type of dressing required for forearm laceration. * CAM walker boot fitted for left foot. Patient to have on with ambulation, may full weight bear as tolerated on LLE. Okay to have boot off with rest. * Hospitalist to continue with pain control and medical management.
[2020-12-06] MEDS: oxyCODONE 5 MG Tab PO PRN ×4 (03:24→21:00)
[2020-12-06] MEDS: Acetaminophen 325 MG Tab PO PRN ×4 (03:24→21:00)
[2020-12-06] MEDS: ceFAZolin 1 GM in Premix Bag 1 BAG IV SCH ×3 (05:08→21:00)
[2020-12-06] MEDS: Sodium Chloride 0.9% 1,000 ML IV SCH ×2 (07:35→15:12)
[2020-12-06] MEDS: Docusate Sodium 100 MG Cap PO SCH ×2 (08:57→20:59)
[2020-12-06] MEDS: Bisacodyl 5 MG Tab PO SCH ×2 (08:57→20:59)
[2020-12-06] MEDS: Potassium Phos in 0.9 % NaCl 250 ML IV SCH ×2 (08:58→11:57)
[2020-12-06] MEDS ORDERED: amLODIPine 5 MG Tab PO SCH (09:00)
[2020-12-06] MEDS ORDERED: Benazepril 10 MG Tab PO SCH (09:00)
[2020-12-06] MEDS ORDERED: BENAZEPRIL PO SCH (10:30)
[2020-12-06] MEDS ORDERED: AMLODIPINE PO SCH (10:30)
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
[2020-12-06] MEDS: HYDROmorphone 0.5 MG/0.5 ML Syringe IVPUSH PRN (13:01)
--- NOTE | 2020-12-06 14:52 | PCM.CONSN ---
- General Info Date of Service: 12/06/20 Admission Dx/Problem (Free Text): Admission Diagnosis/Problem Admission Diagnosis/Problem Pain Subjective Update: Ms. Trinidad has been stable over the last 24 hours except for a decrease in her hemoglobin level to 7.1. 1 unit of red blood cells transfused this morning. Plan for evaluation of her left forearm laceration again tomorrow in the operating room with Dr. Prado. Dressing on left forearm is intact. Has been com pliant with shelia tape on left 2nd and 3rd digit. Has been wearing CAM boot with transfers to commode, full weight bearing on left foot. Reports pain at rest is a 6/10 in the left forearm and hand. Foot pain is very minimal, 1-2/10. Denied paresthesias to left hand or foot. Functional Status: Reports: Tolerating Diet - Review of Systems General: Reports: Weakness Musculoskeletal: Reports: Hand Pain (left ), Foot Pain (left ) Skin: Reports: Bruising - Patient Data Vitals - Most Recent: Last Vital Signs Temp 98.0 F 12/06/20 12:25 Pulse 80 12/06/20 14:00 Resp 14 12/06/20 14:00 BP 102/55 L 12/06/20 14:00 Pulse Ox 97 12/06/20 14:00 Weight - Most Recent: 128 lb 0.4 oz I&O - Last 24 Hours: Intake & Output 12/05/20 12/06/20 12/06/20 22:59 06:59 14:59 Intake Total 1645 1913 1110 Output Total 500 600 Balance 1145 1913 510 Lab Results Last 24 Hours: Laboratory Results - last 24 hr 12/05/20 12/06/20 12/06/20 Range/Units 06:37 04:20 04:20 WBC 7.7 (4.5-11.0) K/uL RBC 2.92 L (3.30-5.50) M/uL Hgb 7.1 L (12.0-15.0) g/dL Hct 23.4 L (36.0-48.0) % MCV 80 (80-98) fL MCH 24 L (27-31) pg MCHC 30 L (32-36) % Plt Count 300 (150-400) K/uL Sodium 140 (140-148) mmol/L Potassium 4.0 (3.6-5.2) mmol/L Chloride 108 (100-108) mmol/L Carbon Dioxide 24 (21-32) mmol/L Anion Gap 7.7 (5.0-14.0) mmol/L BUN 11 (7-18) mg/dL Creatinine 0.8 (0.6-1.0) mg/dL Est Cr Clr Drug Dosing 48.37 mL/min Estimated GFR (MDRD) > 60 (>60) Glucose 117 H (74-106) mg/dL Calcium 7.5 L (8.5-10.1) mg/dL Phosphorus 2.8 (2.5-4.9) mg/dL Magnesium 1.9 (1.8-2.4) mg/dL Total Bilirubin 0.5 (0.2-1.0) mg/dL AST 90 H D (15-37) U/L ALT 90 H (12-78) U/L Alkaline Phosphatase 55 (46-116) U/L Total Protein 5.1 L (6.4-8.2) g/dL Albumin 2.2 L (3.4-5.0) g/dL Globulin 2.9 (2.3-3.5) g/dL Albumin/Globulin Ratio 0.8 L (1.2-2.2) Blood Type A POSITIVE Gel Antibody Screen Negative Crossmatch See Detail Med Orders - Current: Current Medications Acetaminophen (Acetaminophen 325 Mg Tab) 650 mg PO Q4H PRN PRN Reason: Pain (Mild 1-3)/fever Last Admin: 12/06/20 09:28 Dose: 650 mg Documented by: Amlodipine Besylate (Amlodipine 5 Mg Tab) 10 mg PO DAILY [facility] Benazepril HCl (Benazepril 10 Mg Tab) 20 mg PO DAILY [facility] Bisacodyl (Bisacodyl 5 Mg Tab) 10 mg PO BID [facility] Last Admin: 12/06/20 08:57 Dose: 10 mg Documented by: Docusate Sodium (Docusate Sodium 100 Mg Cap) 100 mg PO BID [facility] Last Admin: 12/06/20 08:57 Dose: 100 mg Documented by: Hydrochlorothiazide (Hydrochlorothiazide 25 Mg Tab) 25 mg PO DAILY [facility] Hydromorphone HCl (Hydromorphone 0.5 Mg/0.5 Ml Syringe) 0.5 mg IVPUSH Q2H PRN PRN Reason: Pain (severe 7-10) Last Admin: 12/06/20 13:01 Dose: 0.5 mg Documented by: Cefazolin Sodium/Dextrose 1 gm (/ Premix) 50 mls @ 100 mls/hr IV Q8HR [facility] Last Admin: 12/06/20 05:08 Dose: 100 mls/hr Documented by: Potassium Phosphate (Potassium Phos In Ns 15 Mmol/250 Ml) 250 mls @ 85 mls/hr IV Q3H [facility] Stop: 12/06/20 14:57 Last Admin: 12/06/20 11:57 Dose: 85 mls/hr Documented by: Ondansetron HCl (Ondansetron 4 Mg/2 Ml Sdv) 4 mg IV Q4H PRN PRN Reason: Nausea/Vomiting Last Admin: 12/04/20 15:20 Dose: 4 mg Documented by: Oxycodone HCl (Oxycodone 5 Mg Tab) 5 mg PO Q4H PRN PRN Reason: Pain (moderate 4-6) Last Admin: 12/06/20 03:24 Dose: 5 mg Documented by: Polyethylene Glycol (Polyethylene Glycol 3350 Powder 17 Gm Packet) 17 gm PO DAILY PRN PRN Reason: Constipation Sodium Chloride (Sodium Chloride 0.9% 10 Ml Syringe) 10 ml FLUSH ASDIRECTED PRN PRN Reason: Keep Vein Open Discontinued Medications Bupivacaine HCl (Bupivacaine 0.5% 50 Ml Mdv) Confirm Administered Dose 50 ml .ROUTE .STK-MED ONE Stop: 12/05/20 07:09 Dexamethasone (Dexamethasone 4 Mg/Ml Sdv) Confirm Administered Dose 4 mg .ROUTE .STK-MED ONE Stop: 12/05/20 07:12 Diphtheria/Tetanus/Acell Pertussis (Diphtheria,Pertussis(Acell),Tetanus Vaccine 0.5 Ml Syringe) 0.5 ml IM .ONCE ONE Stop: 12/04/20 12:16 Last Admin: 12/04/20 13:04 Dose: 0.5 ml Documented by: Fentanyl (Fentanyl 100 Mcg/2 Ml Sdv) 50 mcg IVPUSH ONETIME ONE Stop: 12/04/20 12:51 Last Admin: 12/04/20 12:58 Dose: 50 mcg Documented by: Fentanyl (Fentanyl 250 Mcg/5 Ml Sdv) Confirm Administered Dose 250 mcg .ROUTE .STK-MED ONE Stop: 12/05/20 07:12 Glycopyrrolate (Glycopyrrolate 0.2 Mg/Ml 5 Ml Mdv) Confirm Administered Dose 1 mg .ROUTE .STK-MED ONE Stop: 12/05/20 07:12 Hydrochlorothiazide (Hydrochlorothiazide 25 Mg Tab*Pom*) 25 mg PO DAILY [facility] Last Admin: 12/06/20 10:56 Dose: 25 mg Documented by: Sodium Chloride (Normal Saline) 1,000 mls @ 125 mls/hr IV ASDIRECTED [facility] Last Admin: 12/06/20 07:35 Dose: 125 mls/hr Documented by: Cefazolin Sodium 1 gm/ Sodium (Chloride) 50 mls @ 200 mls/hr IV Q8HR [facility] Last Admin: 12/05/20 06:08 Dose: 200 mls/hr Documented by: Linezolid (Zyvox) Confirm Administered Dose 300 mls @ as directed .ROUTE .STK- MED ONE Stop: 12/05/20 07:03 Lidocaine/Epinephrine (Lidocaine 1% With Epinephrine 1:100,000 50 Ml Mdv) Confirm Administered Dose 50 ml .ROUTE .STK-MED ONE Stop: 12/05/20 07:09 Linezolid (Linezolid 600 Mg/300 Ml Bag) 600 mg IRR .STK-MED ONE Stop: 12/05/20 08:51 Last Admin: 12/05/20 08:50 Dose: 600 mg Documented by: Meropenem (Meropenem 500 Mg Sdv) Confirm Administered Dose 500 mg .ROUTE .STK- MED ONE Stop: 12/05/20 07:03 Last Admin: 12/05/20 08:50 Dose: 500 mg Documented by: Neostigmine Methylsulfate (Neostigmine Methylsulfate 1 Mg/Ml 5 Ml Syringe) Confirm Administered Dose 5 mg .ROUTE .STK-MED ONE Stop: 12/05/20 07:12 Ondansetron HCl (Ondansetron 4 Mg/2 Ml Sdv) Confirm Administered Dose 4 mg .ROUTE .STK-MED ONE Stop: 12/05/20 07:12 Amlodipine/Benazepril 10mg/20mg *Pom* 1 each PO DAILY [facility] Last Admin: 12/06/20 10:56 Dose: 1 each Documented by: Propofol (Propofol 200 Mg/20 Ml Sdv) Confirm Administered Dose 200 mg .ROUTE .STK-MED ONE Stop: 12/05/20 07:12 Rocuronium [place] (Rocuronium 50 Mg/5 Ml Vial) Confirm Administered Dose 50 mg .ROUTE .STK-MED ONE Stop: 12/05/20 07:12 Succinylcholine Chloride (Succinylcholine 200 Mg/10 Ml Mdv) Confirm Administered Dose 200 mg .ROUTE .STK-MED ONE Stop: 12/05/20 07:12 - Exam General: Alert, Oriented, Cooperative, Mild Distress Extremities: Pedal Edema (left ), Arm Pain (left ), Leg Pain (left ), Limited Range of Motion Peripheral Pulses: 1+: Posterior Tibial (L) Skin: Other (unable to assess with dressings on left forearm ) Wound/Incisions: Drainage (scant drainage on left forearm dressing ) Sepsis Event Note - Evaluation Sepsis Screening Result: No Definite Risk - Focused Exam Vital Signs: Vital Signs Temp Temp Pulse Resp BP Pulse Ox 12/06/20 14:00 80 14 102/55 L 97 12/06/20 12:25 98.0 F 61 20 101/53 L 12/06/20 12:12 98.0 F 64 20 96/41 L 12/06/20 12:00 98.0 F 64 20 96/41 L 96 12/06/20 11:30 98.0 F 66 20 110/54 L 12/06/20 11:00 98.0 F 72 17 113/39 L 12/06/20 10:45 98.0 F 74 14 124/40 L 12/06/20 10:30 98.1 F 75 14 107/41 L 12/06/20 10:15 98.3 F 98 17 108/41 L 12/06/20 10:00 98.1 F 78 16 128/66 98 12/06/20 09:45 97.9 F 78 18 100/49 L 98 12/06/20 08:00 97.8 F 72 16 94/40 L 97 12/06/20 05:00 60 16 105/46 L 97 12/06/20 03:00 98.6 F 67 16 136/65 97 Consult PN Assessment/Plan Procedures: Procedures ASSAY OF AMYLASE (12/07/13) ASSAY OF TROPONIN QUANT (07/25/17) BREAST TOMOSYNTHESIS BI (10/17/20) C-REACTIVE PROTEIN (08/07/16) CARDIOVASCULAR STRESS TEST (09/14/16) CARDIOVASCULAR STRESS TEST (09/14/16) CARDIOVASCULAR STRESS TEST (12/21/13) CARDIOVASCULAR STRESS TEST (12/21/13) COLONOSCOPY AND BIOPSY (12/16/18) COMPLETE CBC AUTOMATED (07/25/17) COMPLETE CBC W/AUTO DIFF WBC (08/30/16) COMPREHEN METABOLIC PANEL (08/30/16) CT ABD & PELV W/CONTRAST (08/07/16) CT HEAD/BRAIN W/O DYE (09/11/16) ECHO EXAM OF ABDOMEN (12/14/13) EGD BIOPSY SINGLE/MULTIPLE (12/16/18) ELECTROCARDIOGRAM TRACING (07/25/17) EMERGENCY DEPT VISIT (11/01/20) EMERGENCY DEPT VISIT (11/01/20) EMERGENCY DEPT VISIT (07/25/17) EMERGENCY DEPT VISIT (08/07/16) EMERGENCY DEPT VISIT (08/07/16) EMERGENCY DEPT VISIT (12/07/13) HT MUSCLE IMAGE SPECT MULT (09/14/16) HYDRATION IV INFUSION INIT (08/07/16) LAPAROSCOPIC CHOLECYSTECTOMY (01/12/14) METABOLIC PANEL TOTAL CA (11/01/20) ROUTINE VENIPUNCTURE (11/01/20) SCR MAMMO BI INCL CAD (10/17/20) THER/PROPH/DIAG INJ SC/IM (08/07/16) URINALYSIS AUTO W/SCOPE (11/01/20) (1) Metacarpal bone fracture SNOMED Code(s): 678496295 Code(s): S62.309A - UNSP FRACTURE OF UNSP METACARPAL BONE, INIT FOR CLOS FX Current Visit: Yes Qualifiers: Encounter type: initial encounter Metacarpal bone: second Fracture type: closed Metacarpal location: other portion of metacarpal Fracture alignment: displaced (2) Metatarsal fracture SNOMED Code(s): 914094236 Code(s): S92.309A - FRACTURE OF UNSP METATARSAL BONE(S), UNSP FOOT, INIT Current Visit: Yes Qualifiers: Encounter type: initial encounter Metatarsal bone: fifth Fracture type: closed Laterality: left Problem List Initiated/Reviewed/Updated: Yes Plan: * Orthopedic services consulted regarding fracture of left 2nd MCP and left 4th and 5th metatarsal fractures. Xrays reviewed by Dr. Cheng and myself. Will be able to treat all fractures conservatively. * Dressing on left forearm remains from previous day, unable to splint left 2nd MCP fracture site. Shelia tape immobilization in place for left 2nd and 3rd digits at this time. Will re-evaluate after Dr. Cook left forearm exploration tomorrow for splinting options. In the interim, continue with shelia tape to left 2nd and 3rd digit. * Continue to use CAM boot with ambulation, may weight bear as tolerated on LLE. Okay to keep CAM boot off when resting or in bed. * Hospitalist to continue with pain control and medical management.
[2020-12-06] MEDS ORDERED: Dimethicone 20%/Zinc Oxide 25% 56 GM Spray Bottle TOP PRN (16:16)
[2020-12-07] MEDS: oxyCODONE 5 MG Tab PO PRN ×3 (02:17→21:11)
[2020-12-07] MEDS: Acetaminophen 325 MG Tab PO PRN ×2 (02:17→21:10)
[2020-12-07] MEDS: ceFAZolin 1 GM in Premix Bag 1 BAG IV SCH ×3 (05:05→21:11)
[2020-12-07] MEDS ORDERED: Meropenem 500 MG SDV ONE (06:47)
[2020-12-07] MEDS ORDERED: Mupirocin Oint 22 GM Tube ONE (06:47)
[2020-12-07] MEDS ORDERED: Bupivacaine 0.5% 50 ML MDV ONE (06:48)
[2020-12-07] MEDS ORDERED: Lidocaine 1% with EPINEPHrine 1:100,000 50 ML MDV ONE (06:48)
[2020-12-07] MEDS ORDERED: fentaNYL 100 MCG/2 ML SDV ONE (07:31)
[2020-12-07] MEDS ORDERED: Propofol 200 MG/20 ML SDV ONE (07:31)
[2020-12-07] MEDS: amLODIPine 5 MG Tab PO SCH (09:26)
[2020-12-07] MEDS: Benazepril 10 MG Tab PO SCH (09:28)
[2020-12-07] MEDS ORDERED: Magnesium Hydroxide 400 MG/5 ML Susp 30 ML Cup PO ONE (09:30)
[2020-12-07] MEDS: Docusate Sodium 100 MG Cap PO SCH ×2 (09:31→21:11)
[2020-12-07] MEDS: Bisacodyl 5 MG Tab PO SCH ×2 (09:31→21:12)
[2020-12-07] MEDS: Celecoxib 200 MG Cap PO SCH ×2 (10:00→21:11)
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
--- NOTE | 2020-12-07 10:01 | PCM.CONSN ---
- General Info Date of Service: 12/07/20 Admission Dx/Problem (Free Text): Admission Diagnosis/Problem Admission Diagnosis/Problem Pain Subjective Update: Patient has been stable over the past 24 hours; HgB improved to 8.2 this morning after 1 unit pRBCs were transfused yesterday. Patient went to the OR this morning with Dr. Prado for forearm dressing changes; staff reports this went well. Patient has new dressing on left forearm extending to the wrist. David tap e in place on 2nd and 3rd digits. Patient participated in PT this morning, ambulating 5 ft with FWW and CAM boot on LLE, full weight bearing on LLE. Patient reports minimal discomfort in left foot with full weight bearing. Notes pain in left forearm and 2nd digit are well controlled at this time. Denied paresthesias to left 2nd digit nor left foot. Functional Status: Reports: Pain Controlled, Tolerating Diet, Ambulating (with FWW, CAM boot on LLE, x1 SBA ) - Review of Systems General: Reports: Fatigue. Denies: Fever, Chills Musculoskeletal: Reports: Arm Pain (left ), Hand Pain (left ), Foot Pain (left ) Skin: Reports: Bruising - Patient Data Vitals - Most Recent: Last Vital Signs Temp 97.2 F 12/07/20 08:00 Pulse 79 12/07/20 08:05 Resp 14 12/07/20 08:05 BP 115/53 L 12/07/20 09:28 Pulse Ox 97 12/07/20 08:05 Weight - Most Recent: 128 lb 0.4 oz I&O - Last 24 Hours: Intake & Output 12/06/20 12/07/20 12/07/20 22:59 06:59 14:59 Intake Total 1620 50 Output Total 800 800 Balance 820 -750 Lab Results Last 24 Hours: Laboratory Results - last 24 hr 12/05/20 12/07/20 12/07/20 Range/Units 06:37 04:40 04:40 WBC 9.3 (4.5-11.0) K/uL RBC 3.22 L (3.30-5.50) M/uL Hgb 8.2 L (12.0-15.0) g/dL Hct 26.0 L (36.0-48.0) % MCV 81 (80-98) fL MCH 26 L (27-31) pg MCHC 32 (32-36) % Plt Count 333 (150-400) K/uL Sodium 139 L (140-148) mmol/L Potassium 4.2 (3.6-5.2) mmol/L Chloride 107 (100-108) mmol/L Carbon Dioxide 24 (21-32) mmol/L Anion Gap 12.2 (5.0-14.0) mmol/L BUN 12 (7-18) mg/dL Creatinine 0.8 (0.6-1.0) mg/dL Est Cr Clr Drug Dosing 48.37 mL/min Estimated GFR (MDRD) > 60 (>60) Glucose 85 (74-106) mg/dL Calcium 7.7 L (8.5-10.1) mg/dL Phosphorus 3.2 (2.5-4.9) mg/dL Magnesium 1.9 (1.8-2.4) mg/dL Total Bilirubin 1.0 D (0.2-1.0) mg/dL AST 170 H D (15-37) U/L ALT 107 H (12-78) U/L Alkaline Phosphatase 56 (46-116) U/L NT-Pro-B Natriuret Pep 235 H (5-125) pg/mL Total Protein 5.1 L (6.4-8.2) g/dL Albumin 2.0 L (3.4-5.0) g/dL Globulin 3.1 (2.3-3.5) g/dL Albumin/Globulin Ratio 0.7 L (1.2-2.2) Blood Type A POSITIVE Gel Antibody Screen Negative Crossmatch See Detail Med Orders - Current: Current Medications Acetaminophen (Acetaminophen 325 Mg Tab) 650 mg PO Q4H PRN PRN Reason: Pain (Mild 1-3)/fever Last Admin: 12/07/20 02:17 Dose: 650 mg Documented by: Amlodipine Besylate (Amlodipine 5 Mg Tab) 10 mg PO DAILY [facility] Last Admin: 12/07/20 09:26 Dose: 10 mg Documented by: Benazepril HCl (Benazepril 10 Mg Tab) 20 mg PO DAILY [facility] Last Admin: 12/07/20 09:28 Dose: 20 mg Documented by: Bisacodyl (Bisacodyl 5 Mg Tab) 10 mg PO BID [facility] Last Admin: 12/07/20 09:31 Dose: Not Given Documented by: Celecoxib (Celecoxib 200 Mg Cap) 200 mg PO BID [facility] Dimethicone/Zinc Oxide (Dimethicone 20%/Zinc Oxide 25% 56 Gm [place] Bottle) 1 gm TOP ASDIRECTED PRN PRN Reason: Rash Last Admin: 12/06/20 16:31 Dose: 1 spray Documented by: Docusate Sodium (Docusate Sodium 100 Mg Cap) 100 mg PO BID [facility] Last Admin: 12/07/20 09:31 Dose: 100 mg Documented by: Hydrochlorothiazide (Hydrochlorothiazide 25 Mg Tab) 25 mg PO DAILY [facility] Last Admin: 12/07/20 09:30 Dose: 25 mg Documented by: Hydromorphone HCl (Hydromorphone 0.5 Mg/0.5 Ml Syringe) 0.5 mg IVPUSH Q2H PRN PRN Reason: Pain (severe 7-10) Last Admin: 12/06/20 13:01 Dose: 0.5 mg Documented by: Cefazolin Sodium/Dextrose 1 gm (/ Premix) 50 mls @ 100 mls/hr IV Q8HR [facility] Last Admin: 12/07/20 05:05 Dose: 100 mls/hr Documented by: Magnesium Hydroxide (Magnesium Hydroxide 400 Mg/5 Ml Susp 30 Ml Cup) 30 ml PO ASDIRECTED PRN PRN Reason: CONSTIPATION Mupirocin (Mupirocin Oint 22 Gm Tube) 0 gm TOP BID [facility] Ondansetron HCl (Ondansetron 4 Mg/2 Ml Sdv) 4 mg IV Q4H PRN PRN Reason: Nausea/Vomiting Last Admin: 12/04/20 15:20 Dose: 4 mg Documented by: Oxycodone HCl (Oxycodone 5 Mg Tab) 5 mg PO Q4H PRN PRN Reason: Pain (moderate 4-6) Last Admin: 12/07/20 02:17 Dose: 5 mg Documented by: Polyethylene Glycol (Polyethylene Glycol 3350 Powder 17 Gm Packet) 17 gm PO DAILY PRN PRN Reason: Constipation Sodium Chloride (Sodium Chloride 0.9% 10 Ml Syringe) 10 ml FLUSH ASDIRECTED PRN PRN Reason: Keep Vein Open Discontinued Medications Bupivacaine HCl (Bupivacaine 0.5% 50 Ml Mdv) Confirm Administered Dose 50 ml .ROUTE .[facility] ONE Stop: 12/05/20 07:09 Bupivacaine HCl (Bupivacaine 0.5% 50 Ml Mdv) Confirm Administered Dose 50 ml .ROUTE .ST[facility]-MED ONE Stop: 12/07/20 06:49 Dexamethasone (Dexamethasone 4 Mg/Ml Sdv) Confirm Administered Dose 4 mg .ROUTE .STK-MED ONE Stop: 12/05/20 07:12 Diphtheria/Tetanus/Acell Pertussis (Diphtheria,Pertussis(Acell),Tetanus Vaccine 0.5 Ml Syringe) 0.5 ml IM .ONCE ONE Stop: 12/04/20 12:16 Last Admin: 12/04/20 13:04 Dose: 0.5 ml Documented by: Fentanyl (Fentanyl 100 Mcg/2 Ml Sdv) 50 mcg IVPUSH ONETIME ONE Stop: 12/04/20 12:51 Last Admin: 12/04/20 12:58 Dose: 50 mcg Documented by: Fentanyl (Fentanyl 250 Mcg/5 Ml Sdv) Confirm Administered Dose 250 mcg .ROUTE .STK-MED ONE Stop: 12/05/20 07:12 Fentanyl (Fentanyl 100 Mcg/2 Ml Sdv) Confirm Administered Dose 100 mcg .ROUTE .[facility] ONE Stop: 12/07/20 07:32 Glycopyrrolate (Glycopyrrolate 0.2 Mg/Ml 5 Ml Mdv) Confirm Administered Dose 1 mg .ROUTE .STK-MED ONE Stop: 12/05/20 07:12 Hydrochlorothiazide (Hydrochlorothiazide 25 Mg Tab*Pom*) 25 mg PO DAILY [facility] Last Admin: 12/06/20 10:56 Dose: 25 mg Documented by: Sodium Chloride (Normal Saline) 1,000 mls @ 125 mls/hr IV ASDIRECTED [facility] Last Admin: 12/06/20 15:12 Dose: 125 mls/hr Documented by: Cefazolin Sodium 1 gm/ Sodium (Chloride) 50 mls @ 200 mls/hr IV Q8HR [facility] Last Admin: 12/05/20 06:08 Dose: 200 mls/hr Documented by: Linezolid (Zyvox) Confirm Administered Dose 300 mls @ as directed .ROUTE .ST- MED ONE Stop: 12/05/20 07:03 Potassium Phosphate (Potassium Phos In Ns 15 Mmol/250 Ml) 250 mls @ 85 mls/hr IV Q3H [facility] Stop: 12/06/20 14:57 Last Admin: 12/06/20 11:57 Dose: 85 mls/hr Documented by: Lidocaine/Epinephrine (Lidocaine 1% With Epinephrine 1:100,000 50 Ml Mdv) Confirm Administered Dose 50 ml .ROUTE .STK-MED ONE Stop: 12/05/20 07:09 Lidocaine/Epinephrine (Lidocaine 1% With Epinephrine 1:100,000 50 Ml Mdv) Confirm Administered Dose 50 ml .ROUTE .STK-MED ONE Stop: 12/07/20 06:49 Linezolid (Linezolid 600 Mg/300 Ml Bag) 600 mg IRR .STK-MED ONE Stop: 12/05/20 08:51 Last Admin: 12/05/20 08:50 Dose: 600 mg Documented by: Magnesium Hydroxide (Magnesium Hydroxide 400 Mg/5 Ml Susp 30 Ml Cup) 30 ml PO ONETIME ONE Stop: 12/07/20 09:31 Meropenem (Meropenem 500 Mg Sdv) Confirm Administered Dose 500 mg .ROUTE .STK- MED ONE Stop: 12/05/20 07:03 Last Admin: 12/05/20 08:50 Dose: 500 mg Documented by: Meropenem (Meropenem 500 Mg Sdv) Confirm Administered Dose 500 mg .ROUTE .STK- MED ONE Stop: 12/07/20 06:48 Mupirocin (Mupirocin Oint 22 Gm Tube) Confirm Administered Dose 22 gm .ROUTE .STK-MED ONE Stop: 12/07/20 06:48 Last Admin: 12/07/20 07:40 Dose: 22 gm Documented by: Neostigmine Methylsulfate (Neostigmine Methylsulfate 1 Mg/Ml 5 Ml Syringe) Confirm Administered Dose 5 mg .ROUTE .STK-MED ONE Stop: 12/05/20 07:12 Ondansetron HCl (Ondansetron 4 Mg/2 Ml Sdv) Confirm Administered Dose 4 mg .ROUTE .STK-MED ONE Stop: 12/05/20 07:12 Amlodipine/Benazepril 10mg/20mg *Pom* 1 each PO DAILY [facility] Last Admin: 12/06/20 10:56 Dose: 1 each Documented by: Propofol (Propofol 200 Mg/20 Ml Sdv) Confirm Administered Dose 200 mg .ROUTE .STK-MED ONE Stop: 12/05/20 07:12 Propofol (Propofol 200 Mg/20 Ml Sdv) Confirm Administered Dose 200 mg .ROUTE .STK-MED ONE Stop: 12/07/20 07:32 Rocuronium Harris (Rocuronium 50 Mg/5 Ml Vial) Confirm Administered Dose 50 mg .ROUTE .STK-MED ONE Stop: 12/05/20 07:12 Succinylcholine Chloride (Succinylcholine 200 Mg/10 Ml Mdv) Confirm Administered Dose 200 mg .ROUTE .STK-MED ONE Stop: 12/05/20 07:12 - Exam Quality Assessment: DVT Prophylaxis General: Alert, Oriented, Cooperative Extremities: Normal Capillary Refill, Pedal Edema (mild, left ) Peripheral Pulses: 1+: Posterior Tibial (L), 2+: Radial (L) Skin: Moist, Ecchymosis Wound/Incisions: Dressing Dry and Intact, No Drainage, Other (multiple lacerations over the left dorsum of hand. Approximated with sutures. No active drainage. ) Psy/Mental Status: Alert, Normal Affect, Anxious Sepsis Event Note - Evaluation Sepsis Screening Result: No Definite Risk - Focused Exam Vital Signs: Vital Signs Temp Pulse Resp BP BP Pulse Ox 12/07/20 09:28 115/53 L 12/07/20 09:26 115/53 L 12/07/20 08:05 79 14 121/61 97 12/07/20 08:00 97.2 F 78 14 123/63 97 12/07/20 07:55 78 18 113/58 L 97 12/07/20 07:50 71 18 114/60 99 12/07/20 07:45 97.0 F 73 20 106/49 L 99 12/07/20 06:00 56 L 18 87/52 L 95 12/07/20 04:00 98.6 F 70 18 97/41 L 97 12/07/20 02:00 70 20 99/42 L 96 12/07/20 00:00 98.8 F 66 21 H 90/31 L 97 12/06/20 22:00 70 16 85/35 L 95 Consult PN Assessment/Plan Procedures: Procedures ASSAY OF AMYLASE (12/07/13) ASSAY OF TROPONIN QUANT (07/25/17) BREAST TOMOSYNTHESIS BI (10/17/20) C-REACTIVE PROTEIN (08/07/16) CARDIOVASCULAR STRESS TEST (09/14/16) CARDIOVASCULAR STRESS TEST (09/14/16) CARDIOVASCULAR STRESS TEST (12/21/13) CARDIOVASCULAR STRESS TEST (12/21/13) COLONOSCOPY AND BIOPSY (12/16/18) COMPLETE CBC AUTOMATED (07/25/17) COMPLETE CBC W/AUTO DIFF WBC (08/30/16) COMPREHEN METABOLIC PANEL (08/30/16) CT ABD & PELV W/CONTRAST (08/07/16) CT HEAD/BRAIN W/O DYE (09/11/16) ECHO EXAM OF ABDOMEN (12/14/13) EGD BIOPSY SINGLE/MULTIPLE (12/16/18) ELECTROCARDIOGRAM TRACING (07/25/17) EMERGENCY DEPT VISIT (11/01/20) EMERGENCY DEPT VISIT (11/01/20) EMERGENCY DEPT VISIT (07/25/17) EMERGENCY DEPT VISIT (08/07/16) EMERGENCY DEPT VISIT (08/07/16) EMERGENCY DEPT VISIT (12/07/13) HT MUSCLE IMAGE SPECT MULT (09/14/16) HYDRATION IV INFUSION INIT (08/07/16) LAPAROSCOPIC CHOLECYSTECTOMY (01/12/14) METABOLIC PANEL TOTAL CA (11/01/20) ROUTINE VENIPUNCTURE (11/01/20) SCR MAMMO BI INCL CAD (10/17/20) THER/PROPH/DIAG INJ SC/IM (08/07/16) URINALYSIS AUTO W/SCOPE (11/01/20) (1) Metacarpal bone fracture SNOMED Code(s): 396139425 Code(s): S62.309A - UNSP FRACTURE OF UNSP METACARPAL BONE, INIT FOR CLOS FX Current Visit: Yes Qualifiers: Encounter type: initial encounter Metacarpal bone: second Fracture type: closed Metacarpal location: other portion of metacarpal Fracture alignment: displaced (2) Metatarsal fracture SNOMED Code(s): 650144459 Code(s): S92.309A - FRACTURE OF UNSP METATARSAL BONE(S), UNSP FOOT, INIT Current Visit: Yes Comment: left 4th and 5th metatarsal fractures Qualifiers: Encounter type: initial encounter Metatarsal bone: unspecified metatarsal Fracture type: closed Laterality: left Problem List Initiated/Reviewed/Updated: Yes Plan: * Orthopedic services consulted regarding fracture of left 2nd MCP and left 4th and 5th metatarsal fractures. Xrays reviewed by Dr. Cheng and myself. Will be able to treat all fractures conservatively. * Hospitalist to continue with pain control and medical management. * Anticipate discharge to home tomorrow. Outpatient orthopedic follow up arranged for 12/19/20; will see patient in clinic on this date and obtain new xrays of left hand and foot. * Left 2nd MCP fracture: Unable to apply radial gutter splint due to lacerations on the dorsum of left hand. Alumafoam splint applied to second digit with MCP in 70 degree flexion. Gauze padding applied between 2nd and 3rd digit and splint secured with [place] around 2nd and 3rd digit. * Left 4th and 5th metatarsal fractures: Continue to use CAM boot with ambulation, may weight bear as tolerated on LLE with CAM boot on. Okay to keep CAM boot off when resting or in bed.
[2020-12-07] MEDS ORDERED: Magnesium Hydroxide 400 MG/5 ML Susp 30 ML Cup PO PRN (11:00)
[2020-12-07] MEDS: Mupirocin Oint 22 GM Tube TOP SCH (21:11)
[2020-12-08] MEDS: ceFAZolin 1 GM in Premix Bag 1 BAG IV SCH (05:20)
[2020-12-08] MEDS: oxyCODONE 5 MG Tab PO PRN ×3 (07:15→23:40)
--- NOTE | 2020-12-08 08:05 | PCM.CONSN ---
- General Info Date of Service: 12/08/20 Admission Dx/Problem (Free Text): Admission Diagnosis/Problem Admission Diagnosis/Problem Pain Subjective Update: Patient has been stable over the past 24 hours; HgB improved to 9.5. Has been hypotensive overnight, fairly asymptomatic with this. Denied feeling dizzy or lightheaded, nor having any vision changes this morning. Patient reports minimal discomfort in left foot with full weight bearing; participated in PT yesterday morning ambulating 5 ft with FWW and CAM boot on LLE. Went for a walk yesterday evening, 20 ft with FWW and CAM boot on LLE. Has been compliant with Alumafoam splint on left 2nd digit; notes less functional abilities with splint on, as patient is left handed. Notes pain in left forearm and 2nd digit are well controlled at this time. Denied paresthesias to left 2nd digit nor left foot. Functional Status: Reports: Pain Controlled, Tolerating Diet, Ambulating (with FWW, CAM boot on ), Urinating - Review of Systems General: Denies: Fever, Weakness, Chills Musculoskeletal: Reports: Hand Pain (left ), Foot Pain (left ), Other (swelling of left hand and digits ) Skin: Reports: Bruising (left forearm, dorsum of hand, palm of hand ) Neurological: Reports: No Symptoms - Patient Data Vitals - Most Recent: Last Vital Signs Temp 98.8 F 12/08/20 04:00 Pulse 56 L 12/08/20 06:00 Resp 20 12/08/20 06:00 BP 100/50 L 12/08/20 06:00 Pulse Ox 95 12/08/20 06:00 Weight - Most Recent: 291 lb 10.745 oz I&O - Last 24 Hours: Intake & Output 12/07/20 12/08/20 12/08/20 22:59 06:59 14:59 Intake Total 500 350 Output Total 950 1075 250 Balance -450 725 -250 Lab Results Last 24 Hours: Laboratory Results - last 24 hr 12/05/20 12/08/20 12/08/20 Range/Units 06:37 04:10 04:10 WBC 8.6 (4.5-11.0) K/uL RBC 3.66 (3.30-5.50) M/uL Hgb 9.5 L (12.0-15.0) g/dL Hct 29.7 L (36.0-48.0) % MCV 81 (80-98) fL MCH 26 L (27-31) pg MCHC 32 (32-36) % Plt Count 329 (150-400) K/uL Sodium 141 (140-148) mmol/L Potassium 3.6 (3.6-5.2) mmol/L Chloride 106 (100-108) mmol/L Carbon Dioxide 26 (21-32) mmol/L Anion Gap 9.4 (5.0-14.0) mmol/L BUN 11 (7-18) mg/dL Creatinine 0.8 (0.6-1.0) mg/dL Est Cr Clr Drug Dosing 48.37 mL/min Estimated GFR (MDRD) > 60 (>60) Glucose 95 (74-106) mg/dL Calcium 7.9 L (8.5-10.1) mg/dL Phosphorus 3.5 (2.5-4.9) mg/dL Magnesium 1.9 (1.8-2.4) mg/dL Total Bilirubin 1.0 (0.2-1.0) mg/dL AST 115 H (15-37) U/L ALT 101 H (12-78) U/L Alkaline Phosphatase 66 (46-116) U/L Total Protein 5.1 L (6.4-8.2) g/dL Albumin 2.1 L (3.4-5.0) g/dL Globulin 3.0 (2.3-3.5) g/dL Albumin/Globulin Ratio 0.7 L (1.2-2.2) Blood Type A POSITIVE Gel Antibody Screen Negative Crossmatch See Detail Med Orders - Current: Current Medications Acetaminophen (Acetaminophen 325 Mg Tab) 650 mg PO Q4H PRN PRN Reason: Pain (Mild 1-3)/fever Last Admin: 12/07/20 21:10 Dose: 650 mg Documented by: Amlodipine Besylate (Amlodipine 5 Mg Tab) 10 mg PO DAILY [facility] Last Admin: 12/07/20 09:26 Dose: 10 mg Documented by: Benazepril HCl (Benazepril 10 Mg Tab) 20 mg PO DAILY [facility] Last Admin: 12/07/20 09:28 Dose: 20 mg Documented by: Bisacodyl (Bisacodyl 5 Mg Tab) 10 mg PO BID [facility] Last Admin: 12/07/20 21:12 Dose: Not Given Documented by: Celecoxib (Celecoxib 200 Mg Cap) 200 mg PO BID [facility] Last Admin: 12/07/20 21:11 Dose: 200 mg Documented by: Dimethicone/Zinc Oxide (Dimethicone 20%/Zinc Oxide 25% 56 Gm [place] Bottle) 1 gm TOP ASDIRECTED PRN PRN Reason: Rash Last Admin: 12/06/20 16:31 Dose: 1 spray Documented by: Docusate Sodium (Docusate Sodium 100 Mg Cap) 100 mg PO BID [facility] Last Admin: 12/07/20 21:11 Dose: 100 mg Documented by: Hydrochlorothiazide (Hydrochlorothiazide 25 Mg Tab) 25 mg PO DAILY [facility] Last Admin: 12/07/20 09:30 Dose: 25 mg Documented by: Hydromorphone HCl (Hydromorphone 0.5 Mg/0.5 Ml Syringe) 0.5 mg IVPUSH Q2H PRN PRN Reason: Pain (severe 7-10) Last Admin: 12/06/20 13:01 Dose: 0.5 mg Documented by: Cefazolin Sodium/Dextrose 1 gm (/ Premix) 50 mls @ 100 mls/hr IV Q8HR [facility] Last Admin: 12/08/20 05:20 Dose: 100 mls/hr Documented by: Potassium Phosphate 15 mmol/ (Premix) 250 mls @ 85 mls/hr IV Q3H [facility] Stop: 12/08/20 13:57 Magnesium Hydroxide (Magnesium Hydroxide 400 Mg/5 Ml Susp 30 Ml Cup) 30 ml PO ASDIRECTED PRN PRN Reason: CONSTIPATION Mupirocin (Mupirocin Oint 22 Gm Tube) 0 gm TOP BID [facility] Last Admin: 12/07/20 21:11 Dose: 1 dose Documented by: Ondansetron HCl (Ondansetron 4 Mg/2 Ml Sdv) 4 mg IV Q4H PRN PRN Reason: Nausea/Vomiting Last Admin: 12/04/20 15:20 Dose: 4 mg Documented by: Oxycodone HCl (Oxycodone 5 Mg Tab) 5 mg PO Q4H PRN PRN Reason: Pain (moderate 4-6) Last Admin: 12/08/20 07:15 Dose: 5 mg Documented by: Polyethylene Glycol (Polyethylene Glycol 3350 Powder 17 Gm Packet) 17 gm PO DAILY PRN PRN Reason: Constipation Sodium Chloride (Sodium Chloride 0.9% 10 Ml Syringe) 10 ml FLUSH ASDIRECTED PRN PRN Reason: Keep Vein Open Discontinued Medications Bupivacaine HCl (Bupivacaine 0.5% 50 Ml Mdv) Confirm Administered Dose 50 ml .ROUTE .STK-MED ONE Stop: 12/05/20 07:09 Bupivacaine HCl (Bupivacaine 0.5% 50 Ml Mdv) Confirm Administered Dose 50 ml .ROUTE .STK-MED ONE Stop: 12/07/20 06:49 Dexamethasone (Dexamethasone 4 Mg/Ml Sdv) Confirm Administered Dose 4 mg .ROUTE .STK-MED ONE Stop: 12/05/20 07:12 Diphtheria/Tetanus/Acell Pertussis (Diphtheria,Pertussis(Acell),Tetanus Vaccine 0.5 Ml Syringe) 0.5 ml IM .ONCE ONE Stop: 12/04/20 12:16 Last Admin: 12/04/20 13:04 Dose: 0.5 ml Documented by: Fentanyl (Fentanyl 100 Mcg/2 Ml Sdv) 50 mcg IVPUSH ONETIME ONE Stop: 12/04/20 12:51 Last Admin: 12/04/20 12:58 Dose: 50 mcg Documented by: Fentanyl (Fentanyl 250 Mcg/5 Ml Sdv) Confirm Administered Dose 250 mcg .ROUTE .STK-MED ONE Stop: 12/05/20 07:12 Fentanyl (Fentanyl 100 Mcg/2 Ml Sdv) Confirm Administered Dose 100 mcg .ROUTE .STK-MED ONE Stop: 12/07/20 07:32 Glycopyrrolate (Glycopyrrolate 0.2 Mg/Ml 5 Ml Mdv) Confirm Administered Dose 1 mg .ROUTE .STK-MED ONE Stop: 12/05/20 07:12 Hydrochlorothiazide (Hydrochlorothiazide 25 Mg Tab*Pom*) 25 mg PO DAILY [facility] Last Admin: 12/06/20 10:56 Dose: 25 mg Documented by: Sodium Chloride (Normal Saline) 1,000 mls @ 125 mls/hr IV ASDIRECTED [facility] Last Admin: 12/06/20 15:12 Dose: 125 mls/hr Documented by: Cefazolin Sodium 1 gm/ Sodium (Chloride) 50 mls @ 200 mls/hr IV Q8HR [facility] Last Admin: 12/05/20 06:08 Dose: 200 mls/hr Documented by: Linezolid (Zyvox) Confirm Administered Dose 300 mls @ as directed .ROUTE .STK- MED ONE Stop: 12/05/20 07:03 Potassium Phosphate (Potassium Phos In Ns 15 Mmol/250 Ml) 250 mls @ 85 mls/hr IV Q3H [facility] Stop: 12/06/20 14:57 Last Admin: 12/06/20 11:57 Dose: 85 mls/hr Documented by: Lidocaine/Epinephrine (Lidocaine 1% With Epinephrine 1:100,000 50 Ml Mdv) Confirm Administered Dose 50 ml .ROUTE .STK-MED ONE Stop: 12/05/20 07:09 Lidocaine/Epinephrine (Lidocaine 1% With Epinephrine 1:100,000 50 Ml Mdv) Confirm Administered Dose 50 ml .ROUTE .STK-MED ONE Stop: 12/07/20 06:49 Linezolid (Linezolid 600 Mg/300 Ml Bag) 600 mg IRR .STK-MED ONE Stop: 12/05/20 08:51 Last Admin: 12/05/20 08:50 Dose: 600 mg Documented by: Magnesium Hydroxide (Magnesium Hydroxide 400 Mg/5 Ml Susp 30 Ml Cup) 30 ml PO ONETIME ONE Stop: 12/07/20 09:31 Last Admin: 12/07/20 10:37 Dose: Not Given Documented by: Meropenem (Meropenem 500 Mg Sdv) Confirm Administered Dose 500 mg .ROUTE .STK- MED ONE Stop: 12/05/20 07:03 Last Admin: 12/05/20 08:50 Dose: 500 mg Documented by: Meropenem (Meropenem 500 Mg Sdv) Confirm Administered Dose 500 mg .ROUTE .STK- MED ONE Stop: 12/07/20 06:48 Mupirocin (Mupirocin Oint 22 Gm Tube) Confirm Administered Dose 22 gm .ROUTE .STK-MED ONE Stop: 12/07/20 06:48 Last Admin: 12/07/20 07:40 Dose: 22 gm Documented by: Neostigmine Methylsulfate (Neostigmine Methylsulfate 1 Mg/Ml 5 Ml Syringe) Confirm Administered Dose 5 mg .ROUTE .STK-MED ONE Stop: 12/05/20 07:12 Ondansetron HCl (Ondansetron 4 Mg/2 Ml Sdv) Confirm Administered Dose 4 mg .ROUTE .STK-MED ONE Stop: 12/05/20 07:12 Amlodipine/Benazepril 10mg/20mg *Pom* 1 each PO DAILY [facility] Last Admin: 12/06/20 10:56 Dose: 1 each Documented by: Propofol (Propofol 200 Mg/20 Ml Sdv) Confirm Administered Dose 200 mg .ROUTE .STK-MED ONE Stop: 12/05/20 07:12 Propofol (Propofol 200 Mg/20 Ml Sdv) Confirm Administered Dose 200 mg .ROUTE .STK-MED ONE Stop: 12/07/20 07:32 Rocuronium [place] (Rocuronium 50 Mg/5 Ml Vial) Confirm Administered Dose 50 mg .ROUTE .STK-MED ONE Stop: 12/05/20 07:12 Succinylcholine Chloride (Succinylcholine 200 Mg/10 Ml Mdv) Confirm Administered Dose 200 mg .ROUTE .STK-MED ONE Stop: 12/05/20 07:12 - Exam General: Alert, Oriented, Cooperative, No Acute Distress Extremities: Normal Capillary Refill, Pedal Edema (mild, left ), Arm Pain (left ), Leg Pain (left ) Peripheral Pulses: 1+: Posterior Tibial (L), 2+: Radial (L) Skin: Intact, Moist, Ecchymosis Wound/Incisions: Drainage (scant drainage on left forearm dressing ) Psy/Mental Status: Alert, Normal Affect, Normal Mood Sepsis Event Note - Evaluation Sepsis Screening Result: No Definite Risk - Focused Exam Vital Signs: Vital Signs Temp Pulse Resp BP Pulse Ox 12/08/20 06:00 56 L 20 100/50 L 95 12/08/20 04:00 98.8 F 58 L 22 H 88/39 L 97 12/08/20 02:00 60 22 H 102/48 L 95 12/08/20 00:00 98.6 F 74 17 98/56 L 96 12/07/20 22:00 74 23 H 104/43 L 95 12/07/20 20:00 98.6 F 69 20 114/49 L 99 Consult PN Assessment/Plan Procedures: Procedures ASSAY OF AMYLASE (12/07/13) ASSAY OF TROPONIN QUANT (07/25/17) BREAST TOMOSYNTHESIS BI (10/17/20) C-REACTIVE PROTEIN (08/07/16) CARDIOVASCULAR STRESS TEST (09/14/16) CARDIOVASCULAR STRESS TEST (09/14/16) CARDIOVASCULAR STRESS TEST (12/21/13) CARDIOVASCULAR STRESS TEST (12/21/13) COLONOSCOPY AND BIOPSY (12/16/18) COMPLETE CBC AUTOMATED (07/25/17) COMPLETE CBC W/AUTO DIFF WBC (08/30/16) COMPREHEN METABOLIC PANEL (08/30/16) CT ABD & PELV W/CONTRAST (08/07/16) CT HEAD/BRAIN W/O DYE (09/11/16) ECHO EXAM OF ABDOMEN (12/14/13) EGD BIOPSY SINGLE/MULTIPLE (12/16/18) ELECTROCARDIOGRAM TRACING (07/25/17) EMERGENCY DEPT VISIT (11/01/20) EMERGENCY DEPT VISIT (11/01/20) EMERGENCY DEPT VISIT (07/25/17) EMERGENCY DEPT VISIT (08/07/16) EMERGENCY DEPT VISIT (08/07/16) EMERGENCY DEPT VISIT (12/07/13) HT MUSCLE IMAGE SPECT MULT (09/14/16) HYDRATION IV INFUSION INIT (08/07/16) LAPAROSCOPIC CHOLECYSTECTOMY (01/12/14) METABOLIC PANEL TOTAL CA (11/01/20) ROUTINE VENIPUNCTURE (11/01/20) SCR MAMMO BI INCL CAD (10/17/20) THER/PROPH/DIAG INJ SC/IM (08/07/16) URINALYSIS AUTO W/SCOPE (11/01/20) (1) Metacarpal bone fracture SNOMED Code(s): 493147941 Code(s): S62.309A - UNSP FRACTURE OF UNSP METACARPAL BONE, INIT FOR CLOS FX Current Visit: Yes Qualifiers: Encounter type: initial encounter Metacarpal bone: second Fracture type: closed Metacarpal location: other portion of metacarpal Fracture alignment: displaced (2) Metatarsal fracture SNOMED Code(s): 973771343 Code(s): S92.309A - FRACTURE OF UNSP METATARSAL BONE(S), UNSP FOOT, INIT Current Visit: Yes Comment: left 4th and 5th metatarsal fractures Qualifiers: Encounter type: initial encounter Metatarsal bone: unspecified metatarsal Fracture type: closed Laterality: left Problem List Initiated/Reviewed/Updated: Yes Plan: * Orthopedic services consulted regarding fracture of left 2nd MCP and left 4th and 5th metatarsal fractures. Xrays reviewed by Dr. Cheng and myself. Will be able to treat all fractures conservatively. * Hospitalist to continue with pain control and medical management. * Outpatient orthopedic follow up arranged for 12/19/20; will see patient in clinic on this date and obtain new xrays of left hand and foot. * Left 2nd MCP fracture: Unable to apply radial gutter splint due to lacerations on the dorsum of left hand. Alumafoam splint applied yesterday and remains intact today. Second digit with MCP in 70 degree flexion. Gauze padding removed, fresh padding applied between 2nd and 3rd digits today. [place] secured around splint + 2nd and 3rd digit. Discussed continuation of splinting upon discharge; patient may remove splint and switch out gauze padding + perform hand hygiene daily, but splint must be on at all other times. Patient expressed understanding. * Left 4th and 5th metatarsal fractures: Continue to use CAM boot with ambulation, may weight bear as tolerated on LLE with CAM boot on. Okay to keep CAM boot off when resting or in bed.
[2020-12-08] MEDS: amLODIPine 5 MG Tab PO SCH (08:40)
[2020-12-08] MEDS: Docusate Sodium 100 MG Cap PO SCH ×2 (08:41→20:31)
[2020-12-08] MEDS: Benazepril 10 MG Tab PO SCH (08:41)
[2020-12-08] MEDS: Celecoxib 200 MG Cap PO SCH ×2 (08:41→20:31)
[2020-12-08] MEDS: Bisacodyl 5 MG Tab PO SCH ×2 (08:41→20:32)
[2020-12-08] MEDS: Mupirocin Oint 22 GM Tube TOP SCH ×2 (08:42→20:23)
[2020-12-08] MEDS: Potassium Phos in 0.9 % NaCl 15 MMOL in Premix Bag 1 BAG IV SCH ×4 (09:19→12:01)
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
--- NOTE | 2020-12-08 17:05 | PN ---
DATE OF SERVICE: 12/08/2020 The patient has been afebrile with stable vital signs. She has turned the corner quite a bit in the last 24 hours becoming quite mobile and she did move her bowels as well and pain control appears to be quite good with addition of the Celebrex. She very heavily in the way of narcotic. The forearm area was covered with gauze and that was pulled off. We will need to let that dry and facilitate that with today. Otherwise for discharge planning, at this point, we will need to make sure that things are in order at home. It sounds like the daughter who is a nurse is going to be coming in to stay with the patient for a period of time during the upcoming rehab phase. Her hemoglobin today is up to 9.5 and we will not give her any additional blood. The phosphate and potassium are marginally low and we will give her some K-Phos today as well. Gordo Prado MD /[id number]
--- NOTE | 2020-12-08 17:49 | PN ---
DATE OF SERVICE: 12/07/2020 The patient has been afebrile with stable vital signs. No flatus or bowel movement as of yet. The patient did have a dressing change under anesthesia today. On the left side, there was a large amount of area on this side covered with skin, but until this point, it is very clean. The gauze on the right forearm will be opened, and we will let that dry and that will heal up more or less site for skin graft situation. We will apply some Bactroban cream to the lacerations in the fingers and hand on the left side, and begin wet-to-dry dressings to the left forearm open wound. Give her some bowel stimulation today. Add some Celebrex to the equation for pain control. Her hemoglobin is 8.5. We will give her 1 unit of packed RBCs today as well and otherwise continue to maximize activity and work with pulmonary toilet. Gordo Prado MD /[id number]
--- NOTE | 2020-12-08 18:29 | OR ---
DATE OF PROCEDURE: 12/07/2020 SURGEON: Gordo Prado MD PREOPERATIVE DIAGNOSIS: Bilateral open wounds, forearms. POSTOPERATIVE DIAGNOSIS: Bilateral open wounds, forearms. OPERATIVE PROCEDURE: Dressing change under anesthesia. INDICATIONS FOR PROCEDURE: The patient is now 48 hours status post extensive repair of a complex laceration and multiple smaller lacerations on her left upper arm and what appeared to be a superficially growing injury to the posterior aspect of the mid right forearm. The plan is to proceed with dressing change under anesthesia at this point. Potential risks including further bleeding, aspiration of gastric contents and such were reviewed, and the patient wishes to proceed. DETAILS OF PROCEDURE: The patient was taken to the operating room, placed in a supine position. IV sedation was administered. Both forearm dressings were taken down. The area on the right side where the Xeroform was present was clean and this would be left open to let that dry. The repaired area in the mid dorsum of the left forearm was quite clean at this time. There was a large area that was lacking skin and this was redressed with a wet- to-dry gauze. The fingers were then removed from their dressings as was the hand and the various lacerations located there treated with some topical Bactroban, and the patient tolerated the procedure well. The patient was taken to the recovery room in satisfactory condition. Gordo Prado MD /[id number]
[2020-12-09] MEDS: oxyCODONE 5 MG Tab PO PRN ×2 (05:02→09:29)
[2020-12-09 07:54] VITALS: BP 105/54; PULSE 75
[2020-12-09] MEDS: Docusate Sodium 100 MG Cap PO SCH (08:33)
[2020-12-09] MEDS: Celecoxib 200 MG Cap PO SCH (08:34)
[2020-12-09] MEDS: Benazepril 10 MG Tab PO SCH (08:34)
[2020-12-09] MEDS: Bisacodyl 5 MG Tab PO SCH (08:34)
[2020-12-09] MEDS: Mupirocin Oint 22 GM Tube TOP SCH (08:35)
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
== END 2020-12-09 10:45 | disposition home health service (06) | DRG 206 ==
LOC: JP.ED 11:51 → UNDOADMOB 13:57 → JP.ICU 13:57 → OBSVTOIN 12-06 11:07 → JP.MS 12-08 10:53
PROVIDERS: ADMIT Hospitalist; ATTEND Hospitalist
DX: S22.31XA Fracture of one rib, right side, initial encounter for closed fracture (principal); Z68.43 Body mass index [BMI] 50.0-59.9, adult; S62.301A Unspecified fracture of second metacarpal bone, left hand, initial encounter for closed fracture; S51.812A Laceration without foreign body of left forearm, initial encounter; S92.342A Displaced fracture of fourth metatarsal bone, left foot, initial encounter for closed fracture; S92.322A Displaced fracture of second metatarsal bone, left foot, initial encounter for closed fracture; S51.811A Laceration without foreign body of right forearm, initial encounter; H54.7 Unspecified visual loss; E78.00 Pure hypercholesterolemia, unspecified; K21.9 Gastro-esophageal reflux disease without esophagitis; M19.90 Unspecified osteoarthritis, unspecified site; G89.29 Other chronic pain; M54.9 Dorsalgia, unspecified; E66.9 Obesity, unspecified; E55.9 Vitamin D deficiency, unspecified; D50.9 Iron deficiency anemia, unspecified; Z96.659 Presence of unspecified artificial knee joint; F41.9 Anxiety disorder, unspecified; Z85.828 Personal history of other malignant neoplasm of skin; Z90.49 Acquired absence of other specified parts of digestive tract; Z90.710 Acquired absence of both cervix and uterus; Z98.1 Arthrodesis status; V43.62XA Car passenger injured in collision with other type car in traffic accident, initial encounter; Z88.0 Allergy status to penicillin; Z88.8 Allergy status to other drugs, medicaments and biological substances; Z91.013 Allergy to seafood; Z79.82 Long term (current) use of aspirin; Z79.899 Other long term (current) drug therapy; Z85.42 Personal history of malignant neoplasm of other parts of uterus
CPT/HCPCS: 36415; 36430; 70450; 70450-26; 71250; 71250-26; 72125; 72125-26; 73090-26-LT; 73090-LT; 73130-26-LT; 73130-LT; 73630-26-LT; 73630-LT; 74176; 74176-26; 80048; 80053; 83735; 83880; 84100; 85025; 85027; 86850; 86900; 86901; 86920; 86922; 90471; 90715; 96365; 96366; 96367; 96374; 96375; 96376; 97110-GP; 97162-GP; 97530-GP; 97535-GP; 99285-25; A9270-GY; G0378; J0330; J0690; J1100; J1170; J2020; J2185; J2405; J2704; J2710; J3010; J3490; J7030; P9016

== ENCOUNTER 2021-04-04 09:32 | Day surgery (SDC) | payer OTHER, MEDICARE ==
[~2021-04-04 09:32] MED LIST: Dextrose 5%-Lactated Ringers 1,000 ML IV SCH
[2021-04-04] MEDS ORDERED: Acetaminophen 500 MG Tab PO ONE (10:00)
[2021-04-04] MEDS ORDERED: Celecoxib 200 MG Cap PO ONE (10:00)
[2021-04-04] MEDS ORDERED: ceFAZolin 2 GM in Premix Bag 1 BAG IV ONE (10:30)
[2021-04-04] MEDS ORDERED: Bupivacaine 0.5% 50 ML MDV ONE (10:55)
[2021-04-04] MEDS ORDERED: Lidocaine 1% with EPINEPHrine 1:100,000 50 ML MDV ONE (10:55)
[2021-04-04] MEDS ORDERED: Meropenem 500 MG SDV ONE (10:55)
[2021-04-04] MEDS ORDERED: fentaNYL 100 MCG/2 ML SDV ONE (11:11)
[2021-04-04] MEDS ORDERED: Propofol 200 MG/20 ML SDV ONE ×2 (11:12→11:20)
[2021-04-04] MEDS ORDERED: Ondansetron 4 MG/2 ML SDV ONE (11:12)
[2021-04-04] MEDS ORDERED: Glycopyrrolate 0.2 MG/ML 5 ML MDV ONE (11:19)
[2021-04-04] MEDS ORDERED: Ketoconazole 2% Crm 30 GM Tube ONE (12:08)
[2021-04-04 13:46] VITALS: BP 92/58; PULSE 77
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
== END 2021-04-04 14:30 | disposition home or self-care (01) ==
LOC: JP.SDS 09:32
PROVIDERS: ATTEND Surgery
DX: S30.1XXA Contusion of abdominal wall, initial encounter (principal); K21.9 Gastro-esophageal reflux disease without esophagitis; E66.01 Morbid (severe) obesity due to excess calories; Z88.5 Allergy status to narcotic agent; Z88.0 Allergy status to penicillin; Z91.013 Allergy to seafood; Z79.899 Other long term (current) drug therapy; Z79.82 Long term (current) use of aspirin; Z68.42 Body mass index [BMI] 45.0-49.9, adult
CPT/HCPCS: 10140; 76998; 87070; 87075; 87205; A9270; J0690; J2405; J2704; J3010; J3490; J7121; J2020; J2185

== ENCOUNTER 2021-06-03 07:54 | Day surgery (SDC) | payer MEDICARE ==
[~2021-06-03 07:54] MED LIST changes: +Dexamethasone 4 MG/ML SDV ONE; -Dextrose 5%-Lactated Ringers 1,000 ML IV SCH; +Glycopyrrolate 0.2 MG/ML 5 ML MDV ONE; +Neostigmine Methylsulfate 1 MG/ML 5 ML Syringe ONE; +Ondansetron 4 MG/2 ML SDV ONE; +Propofol 200 MG/20 ML SDV ONE; +Rocuronium 50 MG/5 ML Vial ONE; +Succinylcholine 200 MG/10 ML MDV ONE; +fentaNYL 250 MCG/5 ML SDV ONE
[2021-06-03] MEDS ORDERED: Acetaminophen 500 MG Tab PO ONE (08:15)
[2021-06-03] MEDS ORDERED: Celecoxib 200 MG Cap PO ONE (08:15)
[2021-06-03 08:43] LABS: CORONAVIRUS COVID-19 NAA NEGATIVE (NEGATIVE)
[2021-06-03] MEDS ORDERED: Dextrose 5%-Lactated Ringers 1,000 ML IV SCH ×2 (08:45→16:30)
[2021-06-03] MEDS ORDERED: Levofloxacin/Dextrose 5%-Water 500 MG in Premix Bag 1 BAG IV ONE (09:00)
[2021-06-03] MEDS ORDERED: Lidocaine 1% with EPINEPHrine 1:100,000 50 ML MDV ONE ×2 (10:06→11:01)
[2021-06-03] MEDS ORDERED: Bupivacaine 0.5% 50 ML MDV ONE ×2 (10:06→11:01)
[2021-06-03] MEDS ORDERED: Bupivacaine 0.5% 50 ML MDV INFILT ONE (12:28)
[2021-06-03] MEDS ORDERED: Lidocaine 1% with EPINEPHrine 1:100,000 50 ML MDV INFILT ONE (12:30)
[2021-06-03] MEDS ORDERED: hydrOXYzine HCL 100 MG/2 ML SDV IM ONE (12:54)
[2021-06-03] MEDS ORDERED: fentaNYL 100 MCG/2 ML SDV IVPUSH ONE (12:56)
[2021-06-03] MEDS ORDERED: Lactated Ringers 1,000 ML IV SCH (13:55)
[2021-06-03] MEDS ORDERED: Cyclobenzaprine 10 MG Tab PO PRN (16:20)
[2021-06-03] MEDS ORDERED: HYDROmorphone 2 MG Tab PO PRN (16:22)
[2021-06-03] MEDS ORDERED: HYDROmorphone 0.5 MG/0.5 ML Syringe IVPUSH PRN (17:00)
[2021-06-03] MEDS ORDERED: HYDROmorphone 1 MG/ML Syringe IV PRN (17:00)
[2021-06-03] MEDS ORDERED: Ondansetron 4 MG/2 ML SDV IVPUSH PRN (17:00)
[2021-06-03] MEDS: Acetaminophen 325 MG Tab PO SCH ×2 (17:09→23:07)
[2021-06-03] MEDS: hydrOXYzine HCl 25 MG Tab PO PRN (19:30)
[2021-06-03] MEDS: Celecoxib 200 MG Cap PO SCH (21:39)
[2021-06-03] MEDS: Sulfamethoxazole/Trimethoprim 800-160 MG Tab PO SCH (21:40)
[2021-06-04] MEDS: hydrOXYzine HCl 25 MG Tab PO PRN (02:37)
[2021-06-04] MEDS: Acetaminophen 325 MG Tab PO SCH (04:37)
[2021-06-04 07:24] VITALS: BP 105/49; PULSE 63
[2021-06-04] MEDS: Celecoxib 200 MG Cap PO SCH (08:45)
[2021-06-04] MEDS: Sulfamethoxazole/Trimethoprim 800-160 MG Tab PO SCH (08:46)
[2021-06-04] MEDS ORDERED: Potassium Chloride 10 MEQ Cap.ER PO SCH (09:00)
[2021-06-04] MEDS ORDERED: amLODIPine 5 MG Tab PO SCH (09:00)
[2021-06-04] MEDS ORDERED: Benazepril 10 MG Tab PO SCH (09:00)
[2021-06-04] MEDS ORDERED: Hydrochlorothiazide 25 MG Tab PO SCH (09:00)
[2021-06-04] MEDS ORDERED: Lisinopril 20 MG Tab PO SCH (09:00)
[2021-06-04] MEDS ORDERED: Aspirin 81 MG Tab.EC PO SCH (09:00)
== END 2021-06-04 12:30 | disposition home or self-care (01) ==
LOC: JP.SDS 07:54 → JP.MS 15:00 → JP.SDS 06-04 12:30
PROVIDERS: ATTEND Surgery
DX: L02.211 Cutaneous abscess of abdominal wall (principal); K65.4 Sclerosing mesenteritis; E66.01 Morbid (severe) obesity due to excess calories; E55.9 Vitamin D deficiency, unspecified; E78.5 Hyperlipidemia, unspecified; D64.9 Anemia, unspecified; S30.1XXS Contusion of abdominal wall, sequela; I10 Essential (primary) hypertension; Z91.013 Allergy to seafood; Z88.0 Allergy status to penicillin; Z98.890 Other specified postprocedural states; Z88.8 Allergy status to other drugs, medicaments and biological substances; Z68.42 Body mass index [BMI] 45.0-49.9, adult; Z01.812 Encounter for preprocedural laboratory examination; Z79.82 Long term (current) use of aspirin; Z79.899 Other long term (current) drug therapy; Z20.822 Contact with and (suspected) exposure to COVID-19; V89.2XXA Person injured in unspecified motor-vehicle accident, traffic, initial encounter
CPT/HCPCS: 0241U; 11005; 22999; 36415; 76998; 80053; 83735; 84100; 85025; 85027; 87070; 87075; 87077; 87205; A9270; J0330; J1100; J1956; J2405; J2704; J2710; J3010; J3410; J3490; J7120; J7121; 88304

== ENCOUNTER 2021-10-21 14:09 | Emergency (ER) | payer MEDICARE ==
[2021-10-21 16:57] VITALS: BP 105/62; PULSE 81
== END 2021-10-21 17:08 | disposition left against medical advice (07) ==
LOC: JP.ED 14:09
DX: Z53.21 Procedure and treatment not carried out due to patient leaving prior to being seen by health care provider (principal)

== ENCOUNTER 2025-03-02 19:55 | Emergency (ER) | payer MEDICARE ==
[2025-03-02 20:23] VITALS: BP 140/61; PULSE 82
[2025-03-02] MEDS: methylPREDNISolone Sodium Succinate 125 MG/2 ML SDV IM ONE (20:55)
== END 2025-03-02 21:20 | disposition home or self-care (01) ==
LOC: JP.ED 19:55
DX: M54.41 Lumbago with sciatica, right side (principal); I10 Essential (primary) hypertension; K21.9 Gastro-esophageal reflux disease without esophagitis; E78.00 Pure hypercholesterolemia, unspecified; Z88.0 Allergy status to penicillin; Z79.82 Long term (current) use of aspirin; Z91.013 Allergy to seafood; Z91.041 Radiographic dye allergy status; Z79.899 Other long term (current) drug therapy
CPT/HCPCS: 96372; 99283; J2919